=== PATIENT | male | born 1945 | race Caucasian/White ===

== ENCOUNTER → 2016-08-12 | Outpatient (CLI) | payer MEDICARE, OTHER ==
[~2016-08-12] MED LIST: ACCUPRIL40MGTAB; ASPIRIN 81M81 MG/TA2 PO; COUMADIN 1010 MG/TAB; GLUCOPHAGE XR500 M1 PO; K-DUR20 MEQ PO; NASONEX SPRAY17 GM NS; NEXIUM 40MG40 MG PO; PREDNISONE10 MG PO; TAZTIA360; ZITHROMAX 250M250 MG PO
== END ==
LOC: COL.PUL 08:33
DX: Z53.9 Procedure and treatment not carried out, unspecified reason (principal)

== ENCOUNTER 2018-05-25 09:36 | Inpatient (IN) | payer MEDICARE, OTHER ==
[~2018-05-25] VITALS: Ht 185.4 cm; Wt 141.6 kg
[2018-05-25] VITALS (126 sets, daily range): BP systolic 105–120; BP diastolic 65–66; PULSE 73–111; TEMP 97.8–98.5; O2SAT 42–99
[2018-05-25 11:03] LABS: HEMATOCRIT 41.9 % (42.0-52.0); HEMOGLOBIN 12.7 g/dl (13.5-18.0); MEAN CELL VOLUME 81 fl (80.0-100.0); MEAN CORPUSCULAR HEMOGLOBIN 25 pg (27.0-31.0); MEAN CORPUSCULAR HGB CONC 30 g/dl (33.0-37.0); MEAN PLATELET VOLUME 9.9 fl (7.4-10.4); PLATELET COUNT 279 K/mm3 (130-400); RED BLOOD COUNT 5.19 M/mm3 (4.20-5.60); REDCELL DISTRIBUTION WIDTH-CV 18.1 % (11.5-14.5)
[2018-05-25 11:15] LABS: ALBUMIN 4.2 gm/dL (3.5-5.0); BILIRUBIN,TOTAL 1.3 mg/dL (0.0-1.0); CALCIUM 9.2 mg/dL (8.4-10.2); CREATININE, serum 1.52 mg/dL (0.66-1.25); TOTAL PROTEIN 8.5 gm/dL (6.4-8.2)
[2018-05-25 11:21] LABS: COLLECTION METHOD CLEAN CATCH
[2018-05-25 11:23] LABS: POTASSIUM 4.2 mmol/L (3.4-5.0)
[2018-05-25 11:27] LABS: C-REACTIVE PROTEIN 16.5 mg/dL (0.0-0.9)
[2018-05-25 11:36] LABS: BAND 10 % (0-10); LYMPHOCYTE 21 % (20.0-51.0); NEUTROPHILS 69 % (42.0-75.2); PLATELET ESTIMATE NORMAL (NORMAL)
[2018-05-25 11:37] LABS: ANISOCYTOSIS 1+; MICROCYTOSIS 1+
[2018-05-25 11:44] LABS: MUCOUS Present /lpf; PH 5 (5-8); SQUAMOUS EPITHELIAL 0-2 /hpf; URINE APPEARANCE Hazy; URINE BACTERIA None Seen /hpf; URINE BILIRUBIN Negative (NEGATIVE); URINE BLOOD 2+ (NEGATIVE); URINE COLOR Yellow; URINE GLUCOSE Negative (NEGATIVE); URINE KETONE Negative (NEGATIVE); URINE LEUKOCYTE ESTERASE Negative (NEGATIVE); URINE NITRATE Negative (NEGATIVE); URINE PROTEIN(semi-quant) 3+ (NEGATIVE); URINE UROBILINOGEN Negative (NEGATIVE)
--- NOTE | 2018-05-25 14:30 | NUR ---
PATIENT ARRIVED TO ICU ROOM 2 VIA STRETCHER FROM ER. HE WAS ASSISTED WITH MOVING OVER TO THE BED. HE IS CURRENTLY ON 4 L NASAL CANNULA AT THIS TIME. IV ANTIBIOTICS INFUSING. VSS.
[2018-05-25 15:22] LABS: INR 2.9 (0.8-3.0); PROTHROMBIN TIME 33.1 SECONDS (9.7-12.8)
[2018-05-25] MEDS ORDERED: GLUCOPHAGE500 MG/TAB PO (15:56)
[2018-05-25] MEDS ORDERED: MAXZIDE-25MG TA1 TAB PO (15:58)
[2018-05-25] MEDS ORDERED: TRULICITY0.75 MG/0. SQ (16:00)
--- NOTE | 2018-05-25 18:26 | NUR ---
PATIENT RESTING IN BED. COMPLAINING OF SOME LOWER BACK PAIN, BUT WAS SIGNIFICANTLY REDUCED AFTER A DOSE OF DILAUDED. HAS GONE HOME BRIEFLY. HE HAS EATEN DINNER AND WAS TAKEN FRESH ICE WATER. BLADDER SCAN PREFORMED DUE TO PATIENT NOT URINATING SINCE BEING HERE. ONLY HAVE APPROXIMATELY 250 ML'S IN BLADDER. HE STATES HE IS BEGINNING TO HAVE AN URGE TO GO.
--- NOTE | 2018-05-25 19:10 | NUR ---
Report given to NGUYỄN Elizabeth.
--- NOTE | 2018-05-25 20:00 | NUR ---
Shift assessment complete at this time. Plan of care reviewed at bedside with patient. Additional time taken to address any other needs or concerns. Vitals stable at this time. Will continue to monitor.
[2018-05-26] VITALS (856 sets, daily range): BP systolic 87–119; BP diastolic 58–95; PULSE 75–107; TEMP 97.8–98.8; O2SAT 40–100
--- NOTE | 2018-05-26 | NUR ---
Shift reassessment complete at this time. No changes from previous assessment. Vitals stable at this time. Reports slight improvement on flank pain. Will continue to monitor.
--- NOTE | 2018-05-26 04:00 | NUR ---
Shift reassessment complete at this time. No changes from previous assessment. Pt reports slight decrease in R flank pain. BP soft, [facility] will notify physician who will contact with orders. Will continue to monitor.
[2018-05-26 05:07] LABS: MEAN CELL VOLUME 80 fl (80.0-100.0); MEAN CORPUSCULAR HGB CONC 31 g/dl (33.0-37.0); MEAN PLATELET VOLUME 9.9 fl (7.4-10.4); REDCELL DISTRIBUTION WIDTH-CV 18.3 % (11.5-14.5)
[2018-05-26 05:11] LABS: HEMATOCRIT 31.8 % (42.0-52.0); MEAN CORPUSCULAR HEMOGLOBIN 25 pg (27.0-31.0)
[2018-05-26 05:12] LABS: HEMOGLOBIN 9.9 g/dl (13.5-18.0); PLATELET COUNT 173 K/mm3 (130-400)
[2018-05-26 05:18] LABS: INR 2.4 (0.8-3.0); PROTHROMBIN TIME 26.9 SECONDS (9.7-12.8)
[2018-05-26 05:23] LABS: ALBUMIN 2.9 gm/dL (3.5-5.0); BILIRUBIN,TOTAL 1.8 mg/dL (0.0-1.0); CALCIUM 7.9 mg/dL (8.4-10.2); CREATININE, serum 2.1 mg/dL (0.66-1.25); POTASSIUM 3.8 mmol/L (3.4-5.0); TOTAL PROTEIN 6.2 gm/dL (6.4-8.2)
[2018-05-26 06:18] LABS: BAND 39 % (0-10); LYMPHOCYTE 3 % (20.0-51.0); NEUTROPHILS 55 % (42.0-75.2)
[2018-05-26 06:19] LABS: ANISOCYTOSIS 2+; PLATELET ESTIMATE NORMAL (NORMAL)
--- NOTE | 2018-05-26 07:15 | NUR ---
Dr. Villarreal rounds at this time. No new orders recieved.
--- NOTE | 2018-05-26 07:44 | NUR ---
Bedside report given to NGUYỄN Bueno.
--- NOTE | 2018-05-26 08:50 | NUR ---
Dr. Ortega rounds at this time. New orders as entered CPOE. POC discussed with patient to include urology consult and likely operative intervention.
--- NOTE | 2018-05-26 09:01 | NUR ---
Dr. Ortiz calls for patient update and to discuss patient POC. States he hopes to take patient to OR between 12-1 today and will be in to speak with patient shortly.
--- NOTE | 2018-05-26 09:18 | NUR ---
REJI and REJI student met with the patient to discuss discharge plan. The patient lives in [place] with his , Radha. He reports independence with ADLs and has a cane and walker. The patient's PCP is Dr. Stu Cano and he receives his medications at the [facility]. He reports no difficulties obtaining his meds. The patient does not have advanced directives in EMR, but he states that he does have them completed and that his PCP's office should have a copy. REJI then contacted Dr. Cano's office and requested a copy. The nurse reports that they do not have a copy, but would continue to search. REJI then contacted the patient's , via phone, to inquire if she has a copy at home. The patient's reports that she should have a copy and that she will bring it up to the hospital, if found. The patient's reports that the patient had designated her, his daughter, and the patient's [id number] has DPOA-HC. REJI to continue to follow.
--- NOTE | 2018-05-26 09:30 | NUR ---
Report provided to NGUYỄN Kramer. Patient without questions at this time.
--- NOTE | 2018-05-26 09:34 | NUR ---
DAYLIN at bedside for PICC placement.
--- NOTE | 2018-05-26 10:00 | NUR ---
PT PROVIDED DPOA PAPERWORK. COPY ON CHART
--- NOTE | 2018-05-26 10:07 | NUR ---
EDMUNDO YEE INSERTING PICC LINE AT THIS TIME.
--- NOTE | 2018-05-26 10:42 | NUR ---
CONSENT OBTAINED FROM PT'S .
--- NOTE | 2018-05-26 10:48 | NUR ---
The patient's brought in the patient's DPOA-HC. The copy was placed in the patients' chart. SW to continue to follow.
--- NOTE | 2018-05-26 10:51 | NUR ---
PT RESTING COMFORTABLY AT THIS TIME. AT BEDSIDE.
[2018-05-26 11:43] LABS: ARTERIAL BLD GAS O2 SATURATION 95.1 % (92-100); ARTERIAL BLD GAS TCO2 CT 19.9; ARTERIAL BLOOD GAS BASE EXCESS -6.8 (-2-2); ARTERIAL BLOOD GAS HCO3 18.8 meq/L (22-26); ARTERIAL BLOOD GAS PCO2 37.9 mmHg (35-45); ARTERIAL BLOOD GAS PO2 85.6 mmHg (80-100); ARTERIAL BLOOD GAS pH 7.31 (7.35-7.45)
--- NOTE | 2018-05-26 12:14 | NUR ---
NS BOLUS HUNG VIA STRAIGHT TUBING PER DR GAXIOLA'S VERBAL ORDER D/T INADEQUATE PO2 ON VBG. PT TAKEN TO OR BY OR NURSE. PT AWAKE, ORIENTED AND DENIES COMPLAINTS AT THIS TIME. CONSENT ON CHART.
--- NOTE | 2018-05-26 14:03 | NUR ---
PT RECEIVED FROM RICA IN OR
--- NOTE | 2018-05-26 14:05 | NUR ---
PT RETURNED FROM OR WITH CHRISTOPHER CATHETER IN PLACE. URINE HAZY WITH PINK URINE NOTED.
--- NOTE | 2018-05-26 14:05 | NUR ---
PT RETURNED FROM OR VIA BED. PT AWAKE, ALERT AND ORIENTED.
--- NOTE | 2018-05-26 18:42 | NUR ---
PT PLACED ON O2 WHILE SLEEPING PT DESATS INTO UPPER 80S WHILE SLEEPING. PT PLACED ON 3-4L NC.
--- NOTE | 2018-05-26 19:20 | NUR ---
Bedside report received from NGUYỄN Kramer.
--- NOTE | 2018-05-26 20:00 | NUR ---
Assessment complete at this time. Patient resting in bed with at the bedside. Patient requests to get up to the restroom for a BM. Assistance of 2 and gait belt needed to get up and steady when walking. Patient passed some gas, but no BM. Returned to bed with assistance of 2. Patient has some leaking around his urinary catheter. Cleaned around catheter and checked placement. Patient has some shortness of breath on exertion. Patient is back in bed resting. No further needs at this time. Will continue to monitor. Call light within reach.
[2018-05-27] VITALS (901 sets, daily range): BP systolic 90–113; BP diastolic 43–90; PULSE 88–126; TEMP 97.7–99; O2SAT 39–100
--- NOTE | 2018-05-27 | NUR ---
Assessment complete. Patient resting in bed at this time. Patient is still rating pain as a consistent 8/10, even with medications. Dilauded to be given q2hr to stay ahead of the pain. Patient is requesting more ice chips, provided. Patient has no other needs at this time. Will continue to monitor. Call light within reach.
--- NOTE | 2018-05-27 04:00 | NUR ---
Assessment complete. Patient is sleeping in bed, but awakens easily. Patient still rating pain high, 7/10, with medications. Will give dilauded as ordered. Patient has no other needs at this time. Will continue to monitor. Call light within reach.
[2018-05-27 05:33] LABS: MEAN CELL VOLUME 80 fl (80.0-100.0); MEAN CORPUSCULAR HGB CONC 30 g/dl (33.0-37.0); MEAN PLATELET VOLUME 10.9 fl (7.4-10.4); PLATELET COUNT 154 K/mm3 (130-400); RED BLOOD COUNT 4.07 M/mm3 (4.20-5.60); REDCELL DISTRIBUTION WIDTH-CV 18.8 % (11.5-14.5)
[2018-05-27 05:34] LABS: HEMATOCRIT 32.6 % (42.0-52.0); HEMOGLOBIN 9.9 g/dl (13.5-18.0); MEAN CORPUSCULAR HEMOGLOBIN 24 pg (27.0-31.0)
[2018-05-27 05:40] LABS: CALCIUM 7.3 mg/dL (8.4-10.2); CREATININE, serum 2.04 mg/dL (0.66-1.25); POTASSIUM 3.9 mmol/L (3.4-5.0)
[2018-05-27 06:19] LABS: ANISOCYTOSIS 3+; BAND 20 % (0-10); HYPOCHROMIA 3+; LYMPHOCYTE 1 % (20.0-51.0); NEUTROPHILS 71 % (42.0-75.2); OVALOCYTES 2+; PLATELET ESTIMATE NORMAL (NORMAL)
[2018-05-27 06:20] LABS: BURR CELLS 1+
--- NOTE | 2018-05-27 07:32 | NUR ---
Report received from Liana ADRIAN and care resumed.
--- NOTE | 2018-05-27 08:26 | NUR ---
Dr Ortiz called regarding decreased urine output and inability to get return after flushing. Message left.
--- NOTE | 2018-05-27 10:27 | NUR ---
Dr Ortega here to see pt. Dr Ortiz paged again as have not yet received return call and also attempted to call Dr Meier, the phone representative physician. Urologyn office contacted after no response and did pass on issues with nurse. States will speak with someone and call me back.
--- NOTE | 2018-05-27 11:40 | NUR ---
Dr Ortiz at bedside and replaced pt catheter after pt unable to void by self. Large amount of very dark almost brown colored urine noted in return. Will continue to follow.
--- NOTE | 2018-05-27 18:27 | NUR ---
Pt woke from finally resting and stated feels better. Not complaining of 8/10 pain but did state still uncomfortable with movement. Educated pt on importance of moving around for lungs, etc. Pt states he should probably go ahead and take more medication. PRN pain meds given. Will continue to follow.
--- NOTE | 2018-05-27 19:20 | NUR ---
Bedside report received from NGUYỄN Lyles.
--- NOTE | 2018-05-27 20:00 | NUR ---
Assessment complete at this time. Patient is resting in bed, but easily arousable. is at bedside. Patient states pain is a 5/10 and still in the right flank area. States that the pain isnt as bad when he doesnt move. Will give pain meds as ordered and PRN when requested. Patient has no other needs at this time. Will continue to monitor. Call light within reach.
--- NOTE | 2018-05-27 22:50 | NUR ---
Patient has complaints of nausea. States "it's every time I take those pills. They just mess with my stomach and make me nauseous." Zofran to be provided. Educated patient that sometimes it helps to have something in your stomach when he takes the pills that can help with the nausea. Patient confirms understanding and tries to drink some of his glucerna shake. Patient has emesis bag within reach as well as water, ice chip, and call light. Has no further needs at this time. Will continue to monitor.
[2018-05-28] VITALS (850 sets, daily range): BP systolic 105–121; BP diastolic 64–86; PULSE 86–109; TEMP 97.8–98.7; O2SAT 40–100
--- NOTE | 2018-05-28 | NUR ---
Assessment complete. Patient resting in bed. Nausea has subsided with no emesis. Patient states that he is feeling better at the moment. Vitals are stable. Patient has no other needs at this time. Will continue to monitor. Call light within reach.
--- NOTE | 2018-05-28 04:00 | NUR ---
Assessment complete. Patient sleeps between disturbances. Patient states that he doesn't have pain unless he moves. Vital signs stable. Patient has no other needs at this time. Will continue to monitor call light within reach.
--- NOTE | 2018-05-28 04:45 | NUR ---
Patient is now having complaints of nausea and requesting medication for it. He states "I just feel it in my stomach. I'm nauseous again". Zofran to be provided.
[2018-05-28 05:11] LABS: BASO % 0.1 % (0.0-2.0); EOS % 0.1 % (0-4.0); GRAN # 7.6 (1.4-6.5); GRAN % 80.8 % (42.2-75.2); LYMPH # 0.8 (1.2-3.4); LYMPH % 8.7 % (20.0-51.0); MEAN CELL VOLUME 81 fl (80.0-100.0); MEAN CORPUSCULAR HGB CONC 30 g/dl (33.0-37.0); MEAN PLATELET VOLUME 11.4 fl (7.4-10.4); MONO # 0.8 (0.1-0.6); PLATELET COUNT 128 K/mm3 (130-400); RED BLOOD COUNT 3.58 M/mm3 (4.20-5.60); REDCELL DISTRIBUTION WIDTH-CV 19.3 % (11.5-14.5)
[2018-05-28 05:13] LABS: HEMOGLOBIN 8.7 g/dl (13.5-18.0); MEAN CORPUSCULAR HEMOGLOBIN 24 pg (27.0-31.0)
[2018-05-28 05:24] LABS: INR 2.5 (0.8-3.0)
[2018-05-28 05:26] LABS: CALCIUM 6.4 mg/dL (8.4-10.2); CREATININE, serum 1.78 mg/dL (0.66-1.25); POTASSIUM 3.4 mmol/L (3.4-5.0)
[2018-05-28 05:27] LABS: PARTIAL THROMBOPLASTIN TIME 40.6 SECONDS (26.0-37.0)
--- NOTE | 2018-05-28 06:15 | NUR ---
Patient cries out in pain at this time while trying to move to his side in bed. Patient rates pain 8/10. Pain is sharp and in his right side flank. Patient is requesting pain meds at this time. To be provided.
--- NOTE | 2018-05-28 07:19 | NUR ---
Bedside report given to NGUYỄN Lyles
--- NOTE | 2018-05-28 09:30 | NUR ---
Dr Meier in to see pt. No new orders received. Will continue to follow.
--- NOTE | 2018-05-28 10:30 | NUR ---
Dr Stringer in to see pt at this time.
--- NOTE | 2018-05-28 11:05 | NUR ---
Pt helped up to chair with assist of 2. Was only able to stand and pivot but is doing well resting in chair at this time. Will continue to follow.
--- NOTE | 2018-05-28 17:13 | NUR ---
Pt remains resting in chair. Did eat some hamburger and shake that was brought in by family and tolerated without any nausea. remains at bedside. Pt stated he would like to go back to bed before long. PRN pain meds given in anticipation of moving. No concerns at this time, will continue to follow.
--- NOTE | 2018-05-28 18:22 | NUR ---
Report called to Ketty RN on surgical floor. Pt moved to wheelchair with assist of 2 and taken to room 346 with chart and belongings. was present. Bedside update given to Ketty and pt transfered from wheelchair to bed with assist of 2.
--- NOTE | 2018-05-28 20:00 | NUR ---
Patient sleeping at this time. Rouses fairly easily and is alert and orineted while awake, slightly hard of hearing. Hale in place, draining blood tinged urine with small clots in tubing and bag. Patient is unable to assist with repositioning and cries out in pain when he is moved. Patient declines PRN pain medicaiton, stating he is nauseous. Administered PRN nausea medicaiton and will try to administer scheduled HS meds after nausea medication has taken effect. Call light within reach.
[2018-05-29 03:24] VITALS: BP 130/68; PULSE 107; TEMP 98.2
--- NOTE | 2018-05-29 05:23 | NUR ---
Patient slept intermittently overnight. Patient continues to be unable to assist with repositioning. Patient does complain of abdominal discomfort and nausea. Abdomen appears distended and is firm to palpation. Bowel sounds are present in al four quadrants, but patient denies having a bowel movment while at the hospital. Patient denies further needs at this time, call light within reach.
[2018-05-29 06:42] LABS: MEAN CELL VOLUME 80 fl (80.0-100.0); MEAN CORPUSCULAR HGB CONC 31 g/dl (33.0-37.0); MEAN PLATELET VOLUME 11.4 fl (7.4-10.4); PLATELET COUNT 148 K/mm3 (130-400); RED BLOOD COUNT 3.88 M/mm3 (4.20-5.60); REDCELL DISTRIBUTION WIDTH-CV 19.7 % (11.5-14.5)
[2018-05-29 06:50] LABS: HEMATOCRIT 31.1 % (42.0-52.0); HEMOGLOBIN 9.5 g/dl (13.5-18.0); MEAN CORPUSCULAR HEMOGLOBIN 24 pg (27.0-31.0)
[2018-05-29 06:52] LABS: CALCIUM 7.9 mg/dL (8.4-10.2); CREATININE, serum 1.99 mg/dL (0.66-1.25)
[2018-05-29 07:13] LABS: BAND 4 % (0-10); LYMPHOCYTE 7 % (20.0-51.0); NEUTROPHILS 83 % (42.0-75.2); PLATELET ESTIMATE NORMAL (NORMAL)
[2018-05-29 07:14] VITALS: BP 122/60; PULSE 75; TEMP 97.8
[2018-05-29 07:14] LABS: BURR CELLS 2+
[2018-05-29 07:15] LABS: HYPOCHROMIA 1+; MICROCYTOSIS 1+
--- NOTE | 2018-05-29 10:31 | NUR ---
Shift assessment complete. Patient unable to move in bed. Moved up in bed with assist times 4. PA at bedside performing exam. Patient c/o pain, but very drowsy during exam. Scheduled pain medication given, will reassess. at bedside.
[2018-05-29 12:38] VITALS: BP 107/71; PULSE 115; TEMP 97.9
--- NOTE | 2018-05-29 13:04 | NUR ---
BG 176, pt not eating. 12n insulin held. Will reassess BG at dinner.
--- NOTE | 2018-05-29 16:26 | NUR ---
Patient in chair, visiting with family. Patient c/o 10 back pain. Prn flexeril given, per patient request. Will reassess pain.
[2018-05-29 16:30] VITALS: BP 128/47; PULSE 101; TEMP 97
--- NOTE | 2018-05-29 16:41 | NUR ---
Reassessed pain after flexeril and patient states, pain is better (8/10). Will continue to assess.
--- NOTE | 2018-05-29 19:30 | NUR ---
Report received from Ketty ADRIAN. Pt back to bed from chair using sit to stand. Pt reports pain of 8/10 after transfer back to bed. Requesting pain medication with night time medications. Pt given PO meds at change of shift and is requesting IV meds for breakthrough pain. Hale catheter to dependent drainage- draining rere urine. Respirations even and unlabored. Lungs clear to auscultation. Abdomen firm and rounded with hypoactive bowel sounds. 1+ pitting edema to BLE. Will continue to monitor.
[2018-05-29 19:56] VITALS: BP 137/76; PULSE 101; TEMP 98.4
[2018-05-29 23:43] VITALS: BP 129/72; PULSE 8; TEMP 97.8
[2018-05-30 03:57] VITALS: BP 145/93; PULSE 102; TEMP 97.8
[2018-05-30 05:22] LABS: INR 3.4 (0.8-3.0); PROTHROMBIN TIME 38.8 SECONDS (9.7-12.8)
[2018-05-30 05:26] LABS: CALCIUM 7.5 mg/dL (8.4-10.2); CREATININE, serum 1.6 mg/dL (0.66-1.25)
[2018-05-30 05:36] LABS: MEAN CELL VOLUME 80 fl (80.0-100.0); MEAN CORPUSCULAR HGB CONC 31 g/dl (33.0-37.0); MEAN PLATELET VOLUME 10.7 fl (7.4-10.4); PLATELET COUNT 152 K/mm3 (130-400); RED BLOOD COUNT 4.01 M/mm3 (4.20-5.60); REDCELL DISTRIBUTION WIDTH-CV 19.7 % (11.5-14.5)
[2018-05-30 05:42] LABS: HEMOGLOBIN 9.8 g/dl (13.5-18.0); MEAN CORPUSCULAR HEMOGLOBIN 24 pg (27.0-31.0)
--- NOTE | 2018-05-30 06:30 | NUR ---
Pt resting. Suppository adminsitered. Well tolerated. First dose of potassium replacement given. Pt has slept periodically throughout the night with pain while awake and moving.
--- NOTE | 2018-05-30 06:45 | NUR ---
in bed and appears to be sleeping, bedside shift report received from NGUYỄN Magallon
[2018-05-30 07:46] LABS: BAND 4 % (0-10); LYMPHOCYTE 7 % (20.0-51.0); MYELOCYTE 1 % (0-0); NEUTROPHILS 74 % (42.0-75.2); PLATELET ESTIMATE NORMAL (NORMAL)
[2018-05-30 07:47] LABS: ANISOCYTOSIS 1+
[2018-05-30 07:55] VITALS: BP 124/58; PULSE 109; TEMP 98.3
--- NOTE | 2018-05-30 08:01 | NUR ---
radiology in and xray completed, patietn scream in pain with any movement
--- NOTE | 2018-05-30 08:30 | NUR ---
cries out in pain with movement, medicated with dilaudid 1mg slow IV, physical therapy in and patient repositioned onto left side and does cy out some in pain but once on left side he states pain is better, full assessment completed, see interventions for further info
--- NOTE | 2018-05-30 08:52 | NUR ---
Dr Ortega and care team in to see patient
--- NOTE | 2018-05-30 09:00 | NUR ---
appears to be dozing, remains on left side and informed Dr that he was comfortable on his left side
--- NOTE | 2018-05-30 09:38 | NUR ---
continues to appear to be sleeping, remains on left side
--- NOTE | 2018-05-30 11:00 | NUR ---
resting on right side, at bedside
[2018-05-30 12:35] VITALS: BP 134/54; PULSE 112; TEMP 98.8
--- NOTE | 2018-05-30 13:00 | NUR ---
continues to rest on right side, visiting with a friend in waiting room
--- NOTE | 2018-05-30 13:37 | NUR ---
IV fluids stopped and patient moved to cart to go for MRI per cart
--- NOTE | 2018-05-30 14:24 | NUR ---
remains in MRI
--- NOTE | 2018-05-30 14:30 | NUR ---
returned from MRI per cart and moved over to bed, IV meds restarted, marycarmen is resting on his back and states heis comfortable at this time, son at bedside now also along with and a friend, Tammy WYMAN in and visited with them a short time and Dr Ortega will be in later, verbalizes understanding
--- NOTE | 2018-05-30 15:47 | NUR ---
appears to be sleeping, awakens easily when name is called and states he is comfortable unless he moves
[2018-05-30 16:07] VITALS: BP 136/59; PULSE 84; TEMP 98.6
--- NOTE | 2018-05-30 17:05 | NUR ---
Dr Ortega and Iveth WYMAN in to see patient and his family
--- NOTE | 2018-05-30 18:15 | NUR ---
sleeping and awakens but after his name is called numerous times and he is shaken, then opens his eyes and is able to verbalizes where he is, then goes back to sleep quickly
--- NOTE | 2018-05-30 18:44 | NUR ---
bedside shift report given to NGUYỄN Felder
--- NOTE | 2018-05-30 19:20 | NUR ---
Shift assessment complete. Pt resting in bed, sleepy but easy to wake, a&o at this time. Pt denies pain at this time. PICC noted to R upper arm, patent, IVF's infusing per orders. Alexia to ARTIS. Tele in place.
[2018-05-30 20:36] VITALS: BP 140/70; PULSE 86; TEMP 98.4
[2018-05-30 23:55] VITALS: BP 122/60; PULSE 70; TEMP 98.1
[2018-05-31 04:18] VITALS: BP 138/69; PULSE 78; TEMP 96.9
[2018-05-31 05:55] LABS: HEMOGLOBIN 10.2 g/dl (13.5-18.0); MEAN CELL VOLUME 80 fl (80.0-100.0); MEAN CORPUSCULAR HEMOGLOBIN 24 pg (27.0-31.0); MEAN CORPUSCULAR HGB CONC 30 g/dl (33.0-37.0); MEAN PLATELET VOLUME 10.6 fl (7.4-10.4); PLATELET COUNT 214 K/mm3 (130-400); RED BLOOD COUNT 4.19 M/mm3 (4.20-5.60); REDCELL DISTRIBUTION WIDTH-CV 20.2 % (11.5-14.5)
[2018-05-31 06:00] LABS: ALBUMIN 2.9 gm/dL (3.5-5.0); BILIRUBIN,TOTAL 1.4 mg/dL (0.0-1.0); CALCIUM 8.4 mg/dL (8.4-10.2); CREATININE, serum 1.71 mg/dL (0.66-1.25); POTASSIUM 4.3 mmol/L (3.4-5.0); TOTAL PROTEIN 6.5 gm/dL (6.4-8.2)
[2018-05-31 06:16] LABS: INR 3.8 (0.8-3.0); PROTHROMBIN TIME 43.1 SECONDS (9.7-12.8)
[2018-05-31 06:35] LABS: HEMATOCRIT 33.7 % (42.0-52.0)
--- NOTE | 2018-05-31 06:46 | NUR ---
Pt resting in bed s needs. Pt had uneventful night. Report given to Zhang ADRIAN to assume pt cares.
--- NOTE | 2018-05-31 07:09 | NUR ---
Report from Emerita Merida.
[2018-05-31 08:14] VITALS: BP 141/79; PULSE 76; TEMP 97.9
[2018-05-31 08:27] LABS: ANISOCYTOSIS 1+; BAND 4 % (0-10); HYPOCHROMIA 1+; LYMPHOCYTE 14 % (20.0-51.0); METAMYELOCYTE 3 % (0-0); MICROCYTOSIS 1+; NEUTROPHILS 66 % (42.0-75.2); NUCLEATED RED BLOOD CELL 1 (0-6); PLATELET ESTIMATE NORMAL (NORMAL)
[2018-05-31 10:02] LABS: MAGNESIUM 2.6 mg/dL (1.6-2.3); PHOSPHOROUS 3.3 mg/dL (2.5-4.5)
[2018-05-31 10:09] LABS: PRE ALBUMIN 8.7 mg/dL (17.6-36.0)
--- NOTE | 2018-05-31 10:15 | NUR ---
DR. GAXIOLA IN TO SEE PT THIS AM. GAVE DR GAXIOLA MESSAGE FROM [facility] FOR COPY OF MRI TO HAVE NEUROSURGEON IN [place] LOOK AT RESULTS. NEW ORDERS RECIEVED AND CARRIED OUT. PT UP TO RECLINER WITH THERAPY. PT SCREAMS OUT IN PAIN WHEN MOVING AFTER PAIN MEDS GIVEN.
--- NOTE | 2018-05-31 11:29 | NUR ---
REJI and REJI student attended clinical rounding. talked with patient about importance of getting up and moving in his recovery. SW checked PT and they are recommending home vs post acute rehab. SW will continue to follow.
[2018-05-31 12:52] VITALS: BP 134/89; PULSE 78; TEMP 97.4
[2018-05-31 16:42] VITALS: BP 150/80; PULSE 87; TEMP 98.1
[2018-05-31 20:55] VITALS: BP 140/81; PULSE 88; TEMP 99
--- NOTE | 2018-05-31 21:00 | NUR ---
Patient in bed. Has large distended abdomen with hypoactive bowel sounds, tinkling noted to upper quadrants. Patient denies passing gas. Has Oxygen on at 4L/nc, lungs are diminished bilaterally, reports shortness of breath with activity. Patient is alert oriented x2. Has pitting edema to upper and lower extremities. Is able to turn self to sides with much encouragement and moderate assistance. Hale to BSD with yellow urine. Dressing to outer left thigh intact. Skin intact to coccyx and buttocks. Has right upper arm PICC with TPN infusing without redness or swelling, good blood return on both lumens noted.
[2018-05-31 23:33] VITALS: BP 163/73; PULSE 90; TEMP 98
--- NOTE | 2018-06-01 00:41 | NUR ---
Patient yelling out loudly, repositioning himself to the left side. Reports extreme pain to back, right leg and left knee. Medicated with IV Dilaudid at this time.
--- NOTE | 2018-06-01 03:36 | NUR ---
Patient turning himself to the right, yelling out loudly and reporting pain significant to right leg and back. Medicated with IV Dilaudid 1mg at this time.
[2018-06-01 04:30] VITALS: BP 150/63; PULSE 95; TEMP 98.1
--- NOTE | 2018-06-01 05:00 | NUR ---
Lab work obtained from right upper arm PICC. Has been resting without yelling since IV Dilaudid given.
[2018-06-01 05:59] LABS: MEAN CELL VOLUME 80 fl (80.0-100.0); MEAN CORPUSCULAR HEMOGLOBIN 24 pg (27.0-31.0); MEAN CORPUSCULAR HGB CONC 31 g/dl (33.0-37.0); MEAN PLATELET VOLUME 10.1 fl (7.4-10.4); PLATELET COUNT 261 K/mm3 (130-400); RED BLOOD COUNT 4.11 M/mm3 (4.20-5.60)
[2018-06-01 06:00] LABS: HEMATOCRIT 32.8 % (42.0-52.0)
[2018-06-01 06:17] LABS: CALCIUM 8.7 mg/dL (8.4-10.2); CREATININE, serum 1.52 mg/dL (0.66-1.25); PHOSPHOROUS 2.9 mg/dL (2.5-4.5)
[2018-06-01 07:50] LABS: INR 3.2 (0.8-3.0); PROTHROMBIN TIME 36.6 SECONDS (9.7-12.8)
--- NOTE | 2018-06-01 08:00 | NUR ---
PATIENT ASSISTED TO CHAIR WITH PHYSICAL THERAPY THIS MORNING. PATEIENT IS DROWSY, BUT EASILY AROUSABLE TO NAME. PATIENT HARD OF HEARING. GENERALIZED WEAKNESS NOTED. IRREGULAR HEART RHYTHM AND TACHYCARDIA NOTED. BP ELEVATED, OTHERWISE VSS. TELE IN PLACE. DYSPNEA WITH EXERTION NOTED. ALL LUNG WILSON CLEAR UPON AUSCULTATION. PATIENT DENIES SHORTNESS OF BREATH. 02 AT 3L VIA NASAL CANNULA. BOWEL SOUNDS HYPERACTIVE ALL FOUR QUADRANTS. ABDOMEN IS DISTENDED AND FIRM TO PALPATION. PATIENT PASSING FLATUS. POSITIVE PEDAL PULSES EQUAL BILATERALLY. 3+ PITTING-EDEMA TO BLE. SCD'S TO BLE. CHRISTOPHER CATHETER TO DEPENDENT DRAINAGE WITH MODERATE AMOUNTS OF CLEAR YELLOW URINE PRESENT IN CHRISTOPHER BAG. PICC TO RUE WITH TPN INFUSING AT 67.4 MLS/HR. LIDOCAINE PATCHES APPLIED TO RIGHT LOWER BACK & HIP. CALL LIGHT WITHIN REACH. PATIENT IS NPO. PATIENT DENIES ANY OTHER NEEDS AT THIS TIME.
[2018-06-01 08:19] LABS: LYMPHOCYTE 9 % (20.0-51.0); NEUTROPHILS 75 % (42.0-75.2); PLATELET ESTIMATE NORMAL (NORMAL)
[2018-06-01 08:22] VITALS: BP 162/48; PULSE 106; TEMP 98.5
--- NOTE | 2018-06-01 08:25 | NUR ---
PATIENT CALLED OUT REQUESTING PAIN MEDICATION. PATIENT GIVEN PRN DOSE OF IV DILAUDID.
--- NOTE | 2018-06-01 08:25 | NUR ---
PATIENT REQUESTED PAIN MEDICATION. PATIENT RATING HIS PAIN A 10/10. PATIENT GIVEN PRN DOSE OF IV DILAUDID.
--- NOTE | 2018-06-01 08:30 | NUR ---
PICC intact right upper arm. With sterile technique right upper arm PICC dressing change done with insertion site cleansed with ChloraPrep 1, chlorhexidine impregnated disc applied, StatLock, skin prep, and Tegaderm applied. No signs or symptoms of IV complications noted. No concerns voiced. Arm wrapped with Yung to protect catheter.
--- NOTE | 2018-06-01 09:30 | NUR ---
PATIENT PRE-MEDICATED WITH ZOFRAN PRIOR TO TRAMADOL ADMINISTRATION PER DR. GAXIOLA.
--- NOTE | 2018-06-01 09:43 | NUR ---
PATIENT CALLED OUT REQUESTING PAIN MEDICATION. PATIENT STATES THAT THE IV MEDICATION IS NOT HELPING. PO MEDICATIONS RE-STARTED, PATIENT GIVEN PRN DOSE OF ORAL MORPHINE.
--- NOTE | 2018-06-01 11:08 | NUR ---
SW met with patient and to discuss PT recommendation for alf. Patient and his would like #1 [facility] and #2 [facility]. SW faxed referrals to both.
[2018-06-01 12:15] VITALS: BP 149/75; PULSE 95; TEMP 98.1
--- NOTE | 2018-06-01 14:30 | NUR ---
PATIENT CALLED OUT REQUESTING PAIN MEDICATION. PATIENT GIVEN PRN DOSE OF PO MORPHINE. NO OTHER NEEDS AT THIS TIME. WILL CONTINUE TO MONITOR.
[2018-06-01 16:12] VITALS: BP 140/70; PULSE 58; TEMP 97.5
[2018-06-01 19:55] VITALS: BP 139/61; PULSE 77; TEMP 98.6
--- NOTE | 2018-06-01 20:05 | NUR ---
REPORT GIVEN TO NGUYỄN CASTRO.
--- NOTE | 2018-06-01 20:30 | NUR ---
Patient in bed, at bedside. Complains of back pain 12/10. Medicated with IR MS 15mg po at this time. Patient is alert, able to have an oriented conversation with nurse at this time. Taking clear liquids without nausea or vomiting. Abdomen remains distended and firm. Noted active bowel sounds without tinkling. No flatus at this time. Has padilla to BSD with yellow urine. Right PICC with TPN infusing without redness or swelling. Has lower extremity pitting edema, moves both legs when asked. SCD's to lower legs.
--- NOTE | 2018-06-01 23:27 | NUR ---
Patient yelling out, complaining of pain to right leg and lower back. Medicated with IV Dilaudid 1mg at this time as it is too early for any oral pain medications. Rates pain 12/10.
[2018-06-02 01:29] VITALS: BP 145/75; PULSE 98; TEMP 98.6
[2018-06-02 05:12] VITALS: BP 135/73; PULSE 116; TEMP 98.6
--- NOTE | 2018-06-02 06:00 | NUR ---
Patient has rested well. Reports pain to back and rt leg 12/10. Medicated with IR MS 15mg po at this time.
[2018-06-02 06:54] LABS: HEMOGLOBIN 10.1 g/dl (13.5-18.0); MEAN CELL VOLUME 82 fl (80.0-100.0); MEAN CORPUSCULAR HEMOGLOBIN 24 pg (27.0-31.0); MEAN CORPUSCULAR HGB CONC 30 g/dl (33.0-37.0); MEAN PLATELET VOLUME 10.4 fl (7.4-10.4); PLATELET COUNT 276 K/mm3 (130-400); RED BLOOD COUNT 4.16 M/mm3 (4.20-5.60); REDCELL DISTRIBUTION WIDTH-CV 20.4 % (11.5-14.5)
[2018-06-02 06:57] LABS: INR 1.9 (0.8-3.0); PROTHROMBIN TIME 21.7 SECONDS (9.7-12.8)
[2018-06-02 06:59] LABS: ALBUMIN 2.8 gm/dL (3.5-5.0); BILIRUBIN,TOTAL 1.6 mg/dL (0.0-1.0); CALCIUM 8.9 mg/dL (8.4-10.2); CREATININE, serum 1.39 mg/dL (0.66-1.25); MAGNESIUM 1.7 mg/dL (1.6-2.3); PHOSPHOROUS 4.1 mg/dL (2.5-4.5); POTASSIUM 4.2 mmol/L (3.4-5.0); TOTAL PROTEIN 6.3 gm/dL (6.4-8.2)
[2018-06-02 07:00] LABS: HEMATOCRIT 33.9 % (42.0-52.0)
--- NOTE | 2018-06-02 08:00 | NUR ---
PATIENT IS DROWSY THIS MORNING, BUT AROUSES EASILY TO NAME. PATIENT IS HARD OF HEARING, NO HEARING AIDS. PATIENT IS A&O. IRREGULAR HEART RHYTHM WITH REGULAR RATE NOTED. VSS. TELE IN PLACE. GENERALIZED WEAKNESS NOTED. PATIENT MOVEMENT AND RANGE OF MOTION IN BED IMPROVED FROM YESTERDAY. BOWEL SOUNDS ACTIVE ALL FOUR QUADRANTS. ABDOMEN IS DISTENDED AND FIRM TO PALPATION. PATIENT STATES THAT HE'S PASSING SMALL AMOUNTS OF GAS AND IS BELCHING. PATIENT TOLERATING CLEAR LIQUIDS WITHOUT ANY COMPLAINTS OF N/V. POSITIVE PEDAL PULSES EQUAL BILATERALLY. 3+ PITTING-EDEMA TO BLE NOTED. SCD'S TO BLE. SMALL PRESSURE ULCER TO LEFT HIP COVERED WITH MEPLEX. MODERATE AMOUNT OF SHADING ON MEPLEX. LEFT HIP RE-DRESSED WITH MEPLEX. CHRISTOPHER CATHETER TO DEPENDENT DRAINAGE WITH SMALL AMOUNTS OF CLEAR ORANGE COLORED URINE PRESENT IN CHRISTOPHER BAG. PICC LINE TO RUE WITH TPN INFUSING TO PURPLE LUMEN AT 67.6 MLS/HR. BED BATH GIVEN. CATHETER CARE PROVIDED. PATIENT REPOSITIONED IN BED. CLEAR LIQUIDS TRAY ORDERED. CALL LIGHT WITHIN REACH. PATIENT DENIES ANY OTHER NEEDS AT THIS TIME.
--- NOTE | 2018-06-02 08:13 | NUR ---
PATIENT PRE-MEDICATED WITH ZOFRAN IV PRIOR TO TRAMADOL ADMINISTRATION PER DR. GAXIOLA.
[2018-06-02 08:31] VITALS: BP 137/62; PULSE 87; TEMP 97.5
[2018-06-02 08:51] LABS: BAND 5 % (0-10); EOSINOPHIL 1 % (0-4); LYMPHOCYTE 12 % (20.0-51.0); METAMYELOCYTE 1 % (0-0); NEUTROPHILS 65 % (42.0-75.2)
[2018-06-02 08:52] LABS: PLATELET ESTIMATE NORMAL (NORMAL)
--- NOTE | 2018-06-02 09:21 | NUR ---
REJI and SW student attended clinical rounds. Hanna at [facility] reports they will accept for SNF once patient't diet advances. REJI will send an update once it's completed.
--- NOTE | 2018-06-02 11:30 | NUR ---
PATIENT CALLED OUT REQUESTING PAIN MEDICATION. PATIENT GIVEN 1 TABLET OF PRN MORPHINE. WILL CONTINUE TO MONITOR.
[2018-06-02 11:32] VITALS: BP 153/84; PULSE 102; TEMP 97.8
[2018-06-02 15:56] VITALS: BP 130/87; PULSE 89; TEMP 98.4
--- NOTE | 2018-06-02 18:55 | NUR ---
PATIENT CALLED OUT REQUESTING PAIN MEDICATION. PATIENT GIVEN 1 TABLET OF PRN MORPHINE. REPORT GIVEN TO NGUYỄN CASTRO.
[2018-06-02 21:06] VITALS: BP 148/68; PULSE 80; TEMP 98.6
--- NOTE | 2018-06-02 22:30 | NUR ---
Has moderate liquid stool on bedpan. Able to roll side to side with moderate pain complaint. Is alert and oriented x2. Has right upper arm PICC with TPN infusing without problem. Lungs diminished to lower lobes. Has oxygen on at 3L/NC. Abdomen remain distended, bowel sounds active. Hale to BSD with yellow urine, catheter care provided. Takes HS meds without problem.
--- NOTE | 2018-06-02 23:20 | NUR ---
Yelling out in pain, especially when turning. Has small inc. liquid stool at this time. Medicated with IV Dilaudid 1mg now.
[2018-06-03] VITALS (7 sets, daily range): BP systolic 115–161; BP diastolic 60–89; PULSE 75–117; TEMP 97.8–98.7
--- NOTE | 2018-06-03 05:15 | NUR ---
Patient has rested well without excessive outburts of yelling. Medicated with IR Morphine 15mg po now for pain with movement 12/10. Labs drawn from right PICC. Hale with 1500cc dark yellow urine.
[2018-06-03 06:27] LABS: HEMATOCRIT 34.2 % (42.0-52.0); HEMOGLOBIN 10.2 g/dl (13.5-18.0); MEAN CELL VOLUME 81 fl (80.0-100.0); MEAN CORPUSCULAR HEMOGLOBIN 24 pg (27.0-31.0); MEAN CORPUSCULAR HGB CONC 30 g/dl (33.0-37.0); MEAN PLATELET VOLUME 10.4 fl (7.4-10.4); PLATELET COUNT 318 K/mm3 (130-400); REDCELL DISTRIBUTION WIDTH-CV 20.3 % (11.5-14.5)
[2018-06-03 06:35] LABS: CREATININE, serum 1.32 mg/dL (0.66-1.25); MAGNESIUM 1.7 mg/dL (1.6-2.3); PHOSPHOROUS 4.3 mg/dL (2.5-4.5); POTASSIUM 3.9 mmol/L (3.4-5.0)
[2018-06-03 06:58] LABS: INR 1.6 (0.8-3.0); PROTHROMBIN TIME 18.3 SECONDS (9.7-12.8)
[2018-06-03 07:15] LABS: LYMPHOCYTE 5 % (20.0-51.0); MYELOCYTE 3 % (0-0); NEUTROPHILS 87 % (42.0-75.2); PLATELET ESTIMATE NORMAL (NORMAL)
[2018-06-03 07:17] LABS: HYPOCHROMIA 1+; POLYCHROMASIA 1+
--- NOTE | 2018-06-03 08:56 | NUR ---
Patient alert and oriented, answers questions appropriately. See assessment. Lungs with occasional wheeze noted throughout all lung del cid. O2 at 2l/nc. Abdomen distended, bowel sounds absent. States feels full after one drink of water. Hale catheter patent and draining clear yellow urine, meatus noted to have small amount of swelling. No c/o at this time.
--- NOTE | 2018-06-03 10:08 | NUR ---
SW and REJI student attended clinical rounding. Patient is going back to [facility] to get some tests done. SW updated [facility] and [facility]. Will continue to follow.
[2018-06-03 13:47] LABS: COLLECTION METHOD CLEAN CATCH
[2018-06-03 13:56] LABS: MUCOUS Present /lpf; PH 5 (5-8); SQUAMOUS EPITHELIAL 0-2 /hpf; URINE APPEARANCE Hazy; URINE BACTERIA None Seen /hpf; URINE BILIRUBIN Negative (NEGATIVE); URINE BLOOD 3+ (NEGATIVE); URINE COLOR Yellow; URINE GLUCOSE 1+ (NEGATIVE); URINE KETONE Negative (NEGATIVE); URINE LEUKOCYTE ESTERASE Negative (NEGATIVE); URINE NITRATE Negative (NEGATIVE); URINE PROTEIN(semi-quant) 1+ (NEGATIVE); URINE RBC >50 /hpf; URINE UROBILINOGEN >=4.0 mg/dL (NEGATIVE)
[2018-06-04 02:58] VITALS: BP 141/77; PULSE 76; TEMP 98.2
[2018-06-04 06:49] LABS: INR 1.6 (0.8-3.0); MEAN CELL VOLUME 81 fl (80.0-100.0); MEAN CORPUSCULAR HEMOGLOBIN 24 pg (27.0-31.0); MEAN CORPUSCULAR HGB CONC 30 g/dl (33.0-37.0); MEAN PLATELET VOLUME 10.3 fl (7.4-10.4); PLATELET COUNT 336 K/mm3 (130-400); PROTHROMBIN TIME 18.5 SECONDS (9.7-12.8); RED BLOOD COUNT 4.12 M/mm3 (4.20-5.60); REDCELL DISTRIBUTION WIDTH-CV 20.1 % (11.5-14.5)
[2018-06-04 06:54] LABS: CALCIUM 8.9 mg/dL (8.4-10.2); CREATININE, serum 1.3 mg/dL (0.66-1.25); MAGNESIUM 1.9 mg/dL (1.6-2.3); PHOSPHOROUS 3.3 mg/dL (2.5-4.5); POTASSIUM 3.7 mmol/L (3.4-5.0)
[2018-06-04 07:00] LABS: HEMATOCRIT 33.5 % (42.0-52.0)
[2018-06-04 08:59] LABS: BAND 3 % (0-10); LYMPHOCYTE 15 % (20.0-51.0); METAMYELOCYTE 1 % (0-0); NEUTROPHILS 70 % (42.0-75.2)
[2018-06-04 09:01] LABS: PLATELET ESTIMATE NORMAL (NORMAL)
[2018-06-04 09:02] LABS: ANISOCYTOSIS 1+; HYPOCHROMIA 1+
[2018-06-04 09:04] VITALS: BP 158/86; PULSE 75; TEMP 98.2
--- NOTE | 2018-06-04 10:39 | NUR ---
SW educated PT of acceptance to [facility] and [facility]. Patient stated he will speak with of choice.
[2018-06-04 12:04] VITALS: BP 175/80; PULSE 102; TEMP 98
[2018-06-04 15:31] VITALS: BP 152/83; PULSE 89; TEMP 97.7
--- NOTE | 2018-06-04 18:00 | NUR ---
Complained of right hip and lower back pain with movement. Medicated for pain as needed. Physical therapy assisted patient out of bed in AM. Transferred to chair in PM with two staff assist. Passing flatus and had two loose stools this shift. Abdomen remains distended and firm. TPN infusing per PICC.
[2018-06-04 19:48] VITALS: BP 156/66; PULSE 81; TEMP 98.1
--- NOTE | 2018-06-04 20:00 | NUR ---
Patient in bed resting. Alert and oriented x3. Shift assessment complete. Hale to dependent drainage with clear rere urine present. TPN infusing to right upper arm PICC via pump. States mild pain to abdomen, will call when he feels like he needs something for the pain. Abdomen distended and firm. Bowel sounds audible, patient states he is passing gas. Patient on bedpan, had small BM. Denies further needs at this time.
[2018-06-05] VITALS (7 sets, daily range): BP systolic 127–163; BP diastolic 55–92; PULSE 69–89; TEMP 97.2–98.7
--- NOTE | 2018-06-05 06:07 | NUR ---
Patient has rested well through the night. Minimal needs. Hale maintained to dependent drainage with clear rere urine present. Denies pain at this time. Denies further needs at this time. Will report off to day shift.
[2018-06-05 07:16] LABS: MEAN CELL VOLUME 82 fl (80.0-100.0); MEAN CORPUSCULAR HGB CONC 30 g/dl (33.0-37.0); MEAN PLATELET VOLUME 10.5 fl (7.4-10.4); PLATELET COUNT 368 K/mm3 (130-400)
[2018-06-05 07:20] LABS: INR 1.7 (0.8-3.0); PROTHROMBIN TIME 18.9 SECONDS (9.7-12.8)
[2018-06-05 07:27] LABS: HEMATOCRIT 32.6 % (42.0-52.0); HEMOGLOBIN 9.7 g/dl (13.5-18.0); MEAN CORPUSCULAR HEMOGLOBIN 24 pg (27.0-31.0)
[2018-06-05 07:33] LABS: ALBUMIN 2.6 gm/dL (3.5-5.0); BILIRUBIN,TOTAL 1.1 mg/dL (0.0-1.0); CALCIUM 8.6 mg/dL (8.4-10.2); CREATININE, serum 1.27 mg/dL (0.66-1.25); MAGNESIUM 1.8 mg/dL (1.6-2.3); PHOSPHOROUS 4.2 mg/dL (2.5-4.5); POTASSIUM 3.7 mmol/L (3.4-5.0); TOTAL PROTEIN 6.2 gm/dL (6.4-8.2)
--- NOTE | 2018-06-05 08:00 | NUR ---
PATIENT RESTING IN BED THIS MORNING. PATIENT IS A&O. IRREGULAR HEART RHYTHM WITH REGULAR RATE NOTED, OTHERWISE VSS. TELE IN PLACE. GENERALIZED WEAKNESS NOTED. BOWEL SOUNDS ACTIVE ALL FOUR QUADRANTS. PATIENT TOLERATING CLEAR LIQUIDS WITHOUT ANY NAUSEA OR VOMITING. ABDOMEN DISTENDED AND FIRM TO PALPATION. PATIENT PASSING FLATUS. POSITIVE PEDAL PULSES EQUAL BILATERALLY. NON-PITTING EDEMA TO BLE. 3+ PITTING-EDEMA TO FEET AND ANKLES BILATERALLY. CHRISTOPHER CATHETER TO DEPENDENT DRAINAGE WITH MODERATE AMOUNTS OF CLEAR PALE YELLOW URINE PRESENT IN CHRISTOPHER BAG. PICC LINE TO RUE WITH TPN INFUSING AT 65.8 MLS/HR VIA IV PUMP. CALL LIGHT WITHIN REACH. LIDOCAINE PATCHES TO RIGHT HIP & BACK. NO OTHER NEEDS AT THIS TIME.
[2018-06-05 08:52] LABS: BAND 1 % (0-10); HYPOCHROMIA 1+; LYMPHOCYTE 13 % (20.0-51.0); NEUTROPHILS 80 % (42.0-75.2); PLATELET ESTIMATE NORMAL (NORMAL)
--- NOTE | 2018-06-05 09:23 | NUR ---
PATIENT CALLED OUT REQUESTING PAIN MEDICATION. PATIENT GIVEN 1 TABLET OF PRN MORPHINE FOR PAIN RATED A 8/10.
--- NOTE | 2018-06-05 11:30 | NUR ---
PATIENT CALLED OUT STATING THAT HIS PAIN IS WORSE. TOO EARLY FOR PRN MORPHINE. PATIENT GIVEN 1 TABLET OF PRN FLEXERIL. WILL CONTINUE TO MONITOR.
--- NOTE | 2018-06-05 13:22 | NUR ---
PATIENT REQUESTED PAIN MEDICATION. PATIENT DENIES RELIEF FROM PRN FLEXERIL. PATIENT GIVEN 2 TABLETS OF PRN MORPHINE. NO OTHER NEEDS AT THIS TIME.
--- NOTE | 2018-06-05 20:04 | NUR ---
PATIENT PASSING FLATUS DURING THE DAY. SUPERINTENDENT OIL FIELD DRILLING REPORTED MULTIPLE SMALL BOWEL MOVEMENTS DURING THE SHIFT. PATIENT CURRENTLY RESTING IN BED. AT THE BEDSIDE. TV ON. PATIENT REFUSED DINNER. REPORT GIVEN TO NGUYỄN CASTRO.
--- NOTE | 2018-06-05 21:00 | NUR ---
Patient reports feeling like he needs the bedpan, placed with assist of 2. Has right PICC with TPN infusing without problem. Has Oxygen on at 1L/NC. Lungs are diminished to bases. Abdomen distended, bowel sounds active. Has mild edema to penis, padilla to BSD. Catheter care provided at this time. Bilateral lower pitting edema noted. Placed SCD's on patient.
--- NOTE | 2018-06-05 22:00 | NUR ---
Patient medicated with MS IR 30mg po now for pain /, especially with activity. Reports back and right leg pain. IV Antibiotic infusing without problem to right PICC.
--- NOTE | 2018-06-05 23:30 | NUR ---
Patient in bed, has telemetry off and stating he is leaving. States "its a conspiracy and I am not going to be a part of it.". was called while this nurse was at bedside. She is coming up to see pt.
--- NOTE | 2018-06-06 00:40 | NUR ---
Medicated with IV Dilaudid 1mg now for continued back pain 12/10.
--- NOTE | 2018-06-06 01:00 | NUR ---
Spouse went home for the night.
[2018-06-06 04:15] VITALS: BP 156/83; PULSE 73; TEMP 98.6
[2018-06-06 06:26] LABS: HEMATOCRIT 34.5 % (42.0-52.0); HEMOGLOBIN 10.3 g/dl (13.5-18.0); MEAN CELL VOLUME 81 fl (80.0-100.0); MEAN CORPUSCULAR HEMOGLOBIN 24 pg (27.0-31.0); MEAN CORPUSCULAR HGB CONC 30 g/dl (33.0-37.0); MEAN PLATELET VOLUME 10.4 fl (7.4-10.4); PLATELET COUNT 412 K/mm3 (130-400); RED BLOOD COUNT 4.27 M/mm3 (4.20-5.60); REDCELL DISTRIBUTION WIDTH-CV 19.7 % (11.5-14.5)
[2018-06-06 06:30] LABS: INR 1.8 (0.8-3.0); PROTHROMBIN TIME 20.3 SECONDS (9.7-12.8)
[2018-06-06 06:51] LABS: ALBUMIN 2.9 gm/dL (3.5-5.0); BILIRUBIN,TOTAL 1.1 mg/dL (0.0-1.0); CALCIUM 8.6 mg/dL (8.4-10.2); CREATININE, serum 1.35 mg/dL (0.66-1.25); HYPOCHROMIA 1+; LYMPHOCYTE 12 % (20.0-51.0); MAGNESIUM 1.6 mg/dL (1.6-2.3); NEUTROPHILS 76 % (42.0-75.2); PHOSPHOROUS 4.5 mg/dL (2.5-4.5); PLATELET ESTIMATE INCREASED (NORMAL); POTASSIUM 3.5 mmol/L (3.4-5.0); TOTAL PROTEIN 6.7 gm/dL (6.4-8.2)
[2018-06-06 06:52] LABS: ANISOCYTOSIS 1+
[2018-06-06 07:45] VITALS: BP 149/88; PULSE 82; TEMP 98.2
--- NOTE | 2018-06-06 11:48 | NUR ---
REJI attended clinical rounding. Patient not dc today. REJI faxed updates to [facility] and [facility], both have accepted and are following.
[2018-06-06 12:16] VITALS: BP 147/79; PULSE 92; TEMP 97.8
[2018-06-06 15:53] VITALS: BP 149/72; PULSE 68; TEMP 98.1
[2018-06-06 20:30] VITALS: BP 153/88; PULSE 86; TEMP 98.4
[2018-06-07] VITALS (7 sets, daily range): BP systolic 115–145; BP diastolic 51–77; PULSE 72–90; TEMP 97.6–98.5
--- NOTE | 2018-06-07 00:28 | NUR ---
Patient had left leg hanging off bed, when asked where he was going he stated "just thinking what needs to happen next at this place". Able to convince patient to place leg back in bed. VSS. Does not ask for pain med at this time, does not appear to be in pain at this time.
[2018-06-07 05:39] LABS: BASO % 0.1 % (0.0-2.0); EOS # 0.1 (0.0-0.7); EOS % 0.7 % (0-4.0); GRAN # 4.2 (1.4-6.5); HEMATOCRIT 32.4 % (42.0-52.0); LYMPH # 1.3 (1.2-3.4); LYMPH % 19.6 % (20.0-51.0); MEAN CELL VOLUME 80 fl (80.0-100.0); MEAN CORPUSCULAR HEMOGLOBIN 25 pg (27.0-31.0); MEAN CORPUSCULAR HGB CONC 31 g/dl (33.0-37.0); MEAN PLATELET VOLUME 10.5 fl (7.4-10.4); MONO # 1.1 (0.1-0.6); MONO % 15.9 % (1.7-9.3); PLATELET COUNT 396 K/mm3 (130-400); RED BLOOD COUNT 4.06 M/mm3 (4.20-5.60); REDCELL DISTRIBUTION WIDTH-CV 19.4 % (11.5-14.5)
--- NOTE | 2018-06-07 05:40 | NUR ---
Patient alert and oriented this AM. Bowel sounds audible. Lab work obtained from right PICC. Asking for pain med for back pain 12/10. Medicated with MS IR 15mg at this time. Repositioned to right side with minimal assist.
[2018-06-07 05:51] LABS: INR 1.9 (0.8-3.0); PROTHROMBIN TIME 21.2 SECONDS (9.7-12.8)
[2018-06-07 05:58] LABS: CALCIUM 8.6 mg/dL (8.4-10.2); CREATININE, serum 1.37 mg/dL (0.66-1.25); POTASSIUM 3.4 mmol/L (3.4-5.0)
--- NOTE | 2018-06-07 09:30 | NUR ---
Patient alert and oriented, answers questions appropriately. See assessment. Abdomen soft, non distended, non tender. Bowel sounds hyperactive. +Flatus. +Bowel movement today. Hale catheter patent and draining clear rere urine. C/o pain with movement. No other c/o at this time.
--- NOTE | 2018-06-07 13:11 | NUR ---
REJI and REJI student attended clinical rounding. Patient is still having a lot of pain today. He stopped TPN yesterday afternoon and will start a full diet today. REJI faxed update to [facility] and [facility]. Will continue to follow.
--- NOTE | 2018-06-07 14:52 | NUR ---
RA SPO2 ASLEEP 75% AWAKE 85% 2 LPM NC 90%
[2018-06-08 00:25] VITALS: BP 132/87; PULSE 80; TEMP 97.7
--- NOTE | 2018-06-08 01:12 | NUR ---
THE PT WAS BEDRESTING THE SHIFT BEGAN, SLIGHTLY GRUMPY AFFECT, STATED THAT HE JUST HAD PAIN MEDS AND IT HAS BROUGHT THE PAIN DOWN FROM A 10 TO A 7. HE STATED IT IS LUMBAR SPINE DOWN RIGHT BUTTOCK AND LEG. HE HAD ORDER FOR 2 LIDODERM PATCHES, SEARCH YIELDED NONE TO REMOVE. THE PT HAD A MED INCONTINENCE ON HIS BED PAD AND A LARGE INC VOID ON THE BR FLOOR, THIS NURSE HAD PLACED HIS PENIS IN THE URINAL, BUT HE WAS NOT ATTENTIVE IN HOLDING IT WHEN THIS NURSE AND NEW SIMENTAL STEPPED OUT TO GIVE HIM PRIVACY FOR HIS TOILETING. HYGIENE ASSISTED AND BACK TO BED, POSITIONED FOR COMFORT. ACCUCHMARCOS WAS 152, HAD AN ICE CREAM FOR HS SNACK, HAD HIS HIGH NUTRITION GLUCERNA EARLIER IN THE EVENING, TOOK MIRALAX STIRRED IN AJ, 4 OZ. APPEARS TO NAP WITH TV ON.
--- NOTE | 2018-06-08 02:41 | NUR ---
BEDRESTING WITH EYES CLOSED, RESP EVEN. O2 ON VIA NC.
[2018-06-08 04:17] VITALS: BP 124/73; PULSE 85; TEMP 98.4
--- NOTE | 2018-06-08 06:26 | NUR ---
CALLED AND SPOKE TO ESME ADRIAN REGARDOMG THE PT'S ORDER FOR EPIDURAL STEROID INJECTION ON Wednesday06-09-18 AT 0730. SHE WILL PASS IT ON TO DAY SHIFT.
[2018-06-08 06:56] LABS: BASO % 0.2 % (0.0-2.0); EOS # 0.1 (0.0-0.7); GRAN # 3.5 (1.4-6.5); GRAN % 55.8 % (42.2-75.2); LYMPH # 1.7 (1.2-3.4); LYMPH % 27.7 % (20.0-51.0); MEAN CELL VOLUME 81 fl (80.0-100.0); MEAN CORPUSCULAR HGB CONC 30 g/dl (33.0-37.0); MEAN PLATELET VOLUME 10.4 fl (7.4-10.4); MONO # 0.9 (0.1-0.6); MONO % 14.8 % (1.7-9.3); PLATELET COUNT 403 K/mm3 (130-400); RED BLOOD COUNT 4.01 M/mm3 (4.20-5.60); REDCELL DISTRIBUTION WIDTH-CV 19.6 % (11.5-14.5)
[2018-06-08 06:58] LABS: HEMATOCRIT 32.6 % (42.0-52.0); HEMOGLOBIN 9.8 g/dl (13.5-18.0); MEAN CORPUSCULAR HEMOGLOBIN 24 pg (27.0-31.0)
[2018-06-08 07:14] LABS: ALBUMIN 2.8 gm/dL (3.5-5.0); CALCIUM 8.6 mg/dL (8.4-10.2); CREATININE, serum 1.63 mg/dL (0.66-1.25); MAGNESIUM 1.6 mg/dL (1.6-2.3); PHOSPHOROUS 5.6 mg/dL (2.5-4.5); POTASSIUM 3.6 mmol/L (3.4-5.0); TOTAL PROTEIN 6.8 gm/dL (6.4-8.2)
[2018-06-08 07:21] LABS: PRE ALBUMIN 13.1 mg/dL (17.6-36.0)
[2018-06-08 07:59] VITALS: BP 100/69; PULSE 82; TEMP 98.8
--- NOTE | 2018-06-08 08:00 | NUR ---
PATIENT SITTING UP IN BED THIS MORNING. PATIENT IS A&O. IRREGULAR HEART RHYTHM WITH REGULAR RATE NOTED, OTHERWISE VSS. BOWEL SOUNDS ACTIVE ALL FOUR QUADRANTS. ABDOMEN DISTENDED, BUT SOFT TO PALPATION. PATIENT TOLERATING FOOD & LIQUIDS WITHOUT ANY COMPLAINTS OF N/V. POSITIVE PEDAL PULSES EQUAL BILATERALLY. 2+ PITTING EDEMA TO RLE AND 3+ PITTING EDEMA TO LLE NOTED. SCD'S TO BLE. UPPER LUNG LOBES CLEAR UPON AUSCULTATION. LUNG BASES DIMINISHED BILATERALLY. PATIENT DENIES SHORTNESS OF BREATH OR PRODUCTIVE COUGH. 02 AT 2L VIA NASAL CANNULA. PICC TO E. BREAKFAST TRAY ORDERED. CALL LIGHT WITHIN REACH. PATIENT GIVEN 1 TABLET OF PRN MORPHINE FOR PAIN RATED A 6/10 ON A 0-10 SCALE. PATIENT DENIES ANY OTHER NEEDS AT THIS TIME.
--- NOTE | 2018-06-08 09:00 | NUR ---
PICC intact right upper arm with sterile dressing change done with insertion site cleansed with chloraprep x 1, skin prep, stat lock, chlorhexidine impregnated disk, and tegaderm applied. no signs or symptoms of IV complications noted. no concerns voiced. re-wrapped with ibis to protect catheter.
[2018-06-08 10:42] LABS: INR 2.1 (0.8-3.0); PROTHROMBIN TIME 24.3 SECONDS (9.7-12.8)
--- NOTE | 2018-06-08 11:13 | NUR ---
SW met attended clinical rounding and met with patient. They are still open to [facility] vs [facility]. SW faxed updates to both, waiting for acceptance today.
[2018-06-08 11:59] VITALS: BP 109/70; PULSE 97; TEMP 98.5
--- NOTE | 2018-06-08 12:43 | NUR ---
PATIENT REFUSED LUNCH. PATIENT GIVEN ARELY CRACKERS A SNACK WITH WITH INSULIN INJECTION.
--- NOTE | 2018-06-08 16:03 | NUR ---
ELVIN met with patient's . Patient will be able discharge tomorrow and patient still pregers to go to [facility] for skilled. Elvin will contact hakan at [facility] to set up transportation in the morning.
[2018-06-08 16:36] VITALS: BP 127/77; PULSE 80; TEMP 98.1
--- NOTE | 2018-06-08 17:17 | NUR ---
PATIENT RATING PAIN A 10/10. PATIENT GIVEN 2 TABLETS OF PRN MORPHINE. WILL CONTINUR TO MONITOR.
--- NOTE | 2018-06-08 18:00 | NUR ---
PATIENT AMBULATING TO THE BATHROOM TO VOID. PATIENT WALKING WITH PHYSICAL THERAPY. REPORT GIVEN TO NGUYỄN BARKSDALE.
[2018-06-08 20:00] VITALS: BP 141/72; PULSE 90; TEMP 98.7
--- NOTE | 2018-06-08 21:44 | NUR ---
Shift assessment complete. Patient c/o 12/10 pain in back. Prn pain medication given. Patient ambulated to BR with walker, gait belt, and assist times 1. Denies further needs. Will continue to monitor.
--- NOTE | 2018-06-09 03:41 | NUR ---
Patient ambulated to BR with walker, gait belt, and assist times 1. Patient c/o 9/10 back pain. No prn pain medications are due at this time. Patient states, he does not want me to call for additional pain medication, and will wait for his prn medication.
[2018-06-09 04:58] VITALS: BP 133/79; PULSE 84; TEMP 98.5
--- NOTE | 2018-06-09 05:31 | NUR ---
Labs drawn from PICC line, red lumen, per protocol. Both lumens flushed, and caps changed.
[2018-06-09 07:51] VITALS: BP 135/80; PULSE 68; TEMP 98.2
--- NOTE | 2018-06-09 08:00 | NUR ---
PATIENT IS SITTING UP IN BED THIS MORNING. PATIENT IS A&O. IRREGULAR HEART RHYTHM WITH REGULAR RATE NOTED, OTHERWISE VSS. TELE IN PLACE. GENERALIZED WEAKNESS NOTED. BOWEL SOUNDS ACTIVE ALL FOUR QUADRANTS. PATIENT TOLERATING FOOD & LIQUIDS WITHOUT ANY COMPLAINTS OF N/V. ABDOMEN IS DISTENDED BUT SOFT TO PALPATION. POSITIVE PEDAL PULSES EQUAL BILATERALLY. 2+ PITTING-EDEMA TO RLE AND 3+ PITTING-EDEMA TO LLE NOTED. PATIENT STATES THAT HE FEELS SHORT OF BREATH WITH ACTIVITY. O2 AT 3L VIA NASAL CANNULA. PICC LINE TO RUE. CALL LIGHT WITHIN REACH. PATIENT DENIES ANY NEEDS AT THIS TIME.
[2018-06-09 08:06] LABS: INR 2.1 (0.8-3.0); PROTHROMBIN TIME 23.7 SECONDS (9.7-12.8)
[2018-06-09] MEDS ORDERED: FLOMAX 0.40.4 MG/CAP PO (09:04)
[2018-06-09] MEDS ORDERED: FLEXERIL 1010 MG/TAB PO (09:04)
[2018-06-09] MEDS ORDERED: Lidocaine 4% Patch TP (09:05)
[2018-06-09] MEDS ORDERED: NEURONTIN300 MG/CAP PO (09:10)
[2018-06-09] MEDS ORDERED: FLONASE NASAL S16 GM NS (09:11)
[2018-06-09] MEDS ORDERED: ULTRAM 50MG TAB50 MG PO (09:12)
[2018-06-09] MEDS ORDERED: MORPHINE 1515 MG/TAB PO (09:12)
[2018-06-09] MEDS ORDERED: COUMADIN 5MG5 MG/TAB PO (10:21)
[2018-06-09] MEDS ORDERED: ACCUPRIL5MGTAB PO (10:24)
[2018-06-09] MEDS ORDERED: DULCOLAX S10 MG/SUPP RC (10:25)
[2018-06-09] MEDS ORDERED: LEADER CLE17 GM/Dose PO (10:26)
[2018-06-09] MEDS ORDERED: SENOKOT S 50 MG1 TAB PO (10:26)
--- NOTE | 2018-06-09 11:47 | NUR ---
PATIENT CALLED OUT REQUESTING PAIN MEDICATION. PATIENT RATING HIS LOW BACK AND RIGHT LEG PAIN A 9/10 ON A 0-10 SCALE. PATIENT GIVEN PRN DOSE OF PO MORPHINE. PATIENT DENIES ANY OTHER NEEDS AT THIS TIME.
[2018-06-09 11:58] VITALS: BP 133/65; PULSE 65; TEMP 97.6
--- NOTE | 2018-06-09 13:38 | NUR ---
Talked with pt's concerning discharge to [facility]. Instructed that for the retirement care and resolution for pain pt needed to see a Neurologist that they felt comfortable with and could trust. Pt is not urgent for transfer due to an acute situation-however he does need to find a Neurologist that can address pt's issues. Encouraged that if pt was discharged to [facility] Dr. Cano-pt's primary-could facilitate contact with a Neurologist in [place] or that the family would agree with. verbalized agreement with this plan and stated she felt comfortable with discharge to [facility]. Also instructed that to have pt's primary physician involved with this could help guarantee a better cohesive plan. Asked pt's if I could speak with their daughter,Cee, concerning our discussion and decision for discharge and agreed.
[2018-06-09 14:06] VITALS: BP 133/65; PULSE 65; TEMP 97.6
--- NOTE | 2018-06-09 14:54 | NUR ---
SW met with patient and patients to present IM and verbally discussed the contents. Patients signed the form. Original in chart and copy provided. Patients asked SW to call patients daughter in law as she has some concerns. SW called and left a for jayne rebolledo, . Jayne called back and voiced her concerns about patient dc when he is in acute pain. REJI explained the drs position and that he needs to see a neurologist outpatient and follow with his PCP. REJI discussed the patients ability to dispute the discharge with medicare with her as well. Jayne said she would call her mother in law and talk to her. [facility] talked with and patient and they are agreeable to go to [facility] today. Patient to be transported Via wheelchair van to [facility] today at 2:30pm. Discharge orders faxed and nurse informed.
--- NOTE | 2018-06-09 15:00 | NUR ---
PICC REMOVED BY [facility] WITH [facility]. REPORT CALLED TO BIJAN MILLER RN AT [facility]. PATIENT TAKEN TO PRIVATE TRANSPORT VEHICLE VIA WHEELCHAIR BY SURGICAL STAFF. PATIENT TRANSFERRED.
== END 2018-06-09 15:00 | DRG 854 ==
LOC: COL.ER 09:36 → ICU 12:12 → SURG 05-28 18:16
PROVIDERS: Family Medicine; Physician Assistant; Urology; ADMIT Family Medicine
PROC: 0T768DZ Dilation of Right Ureter with Intraluminal Device, Via Natural or Artificial Opening Endoscopic (ICD-10-PCS; principal; 2018-05-26 12:00)
PROC: 0TC68ZZ Extirpation of Matter from Right Ureter, Via Natural or Artificial Opening Endoscopic (ICD-10-PCS; 2018-05-26 12:00)
PROC: BT1DZZZ Fluoroscopy of Right Kidney, Ureter and Bladder (ICD-10-PCS; 2018-05-26 12:00)
DX: A41.81 Sepsis due to Enterococcus (principal); N20.1 Calculus of ureter; N17.9 Acute kidney failure, unspecified; E87.2 Acidosis; Z66 Do not resuscitate; K56.7 Ileus, unspecified; R44.3 Hallucinations, unspecified; N39.0 Urinary tract infection, site not specified; E46 Unspecified protein-calorie malnutrition; Z68.41 Body mass index [BMI] 40.0-44.9, adult; E11.65 Type 2 diabetes mellitus with hyperglycemia; I48.2 Chronic atrial fibrillation; I12.9 Hypertensive chronic kidney disease with stage 1 through stage 4 chronic kidney disease, or unspecified chronic kidney disease; E11.22 Type 2 diabetes mellitus with diabetic chronic kidney disease; T40.605A Adverse effect of unspecified narcotics, initial encounter; R65.20 Severe sepsis without septic shock; N18.9 Chronic kidney disease, unspecified; Z85.820 Personal history of malignant melanoma of skin; Z86.718 Personal history of other venous thrombosis and embolism; Z79.01 Long term (current) use of anticoagulants; I87.2 Venous insufficiency (chronic) (peripheral); E87.6 Hypokalemia; R41.0 Disorientation, unspecified; M48.061 Spinal stenosis, lumbar region without neurogenic claudication
CPT/HCPCS: 99223-AI; 99231-AI; 99232-AI; 99233-AI; 99239; A4314; A9284; A9585; C1751; C1758; C1769; C1894; C2617; C9113; J0330; J0610; J0690; J0744; J1170; J1650; J1815; J1940; J1956; J2405; J2543; J2550; J2704; J3010; J3370; J3475; J3480; J7030; J7040; J7131; Q9967

== ENCOUNTER → 2018-06-27 | Outpatient (CLI) | payer MEDICARE, OTHER ==
[~2018-06-27] MED LIST changes: +ACCUPRIL5MGTAB PO; +COUMADIN 5MG5 MG/TAB PO; +DULCOLAX S10 MG/SUPP RC; +FLEXERIL 1010 MG/TAB PO; +FLOMAX 0.40.4 MG/CAP PO; +FLONASE NASAL S16 GM NS; +GLUCOPHAGE500 MG/TAB PO; +LEADER CLE17 GM/Dose PO; +Lidocaine 4% Patch TP; +MAXZIDE-25MG TA1 TAB PO; +MORPHINE 1515 MG/TAB PO; +NEURONTIN300 MG/CAP PO; +SENOKOT S 50 MG1 TAB PO; +TRULICITY0.75 MG/0. SQ; +ULTRAM 50MG TAB50 MG PO
[2018-06-27 16:04] LABS: HEMOGLOBIN 10.5 g/dl (13.5-18.0)
[2018-06-27 16:06] LABS: HEMATOCRIT 34.8 % (42.0-52.0)
[2018-06-27 16:23] LABS: ALBUMIN 3.3 gm/dL (3.5-5.0); CALCIUM 8.4 mg/dL (8.4-10.2); CREATININE, serum 1.5 mg/dL (0.66-1.25)
== END ==
LOC: COL.LAB 04:23
PROVIDERS: Family Medicine
DX: N18.9 Chronic kidney disease, unspecified (principal); D63.1 Anemia in chronic kidney disease; K52.9 Noninfective gastroenteritis and colitis, unspecified

== ENCOUNTER 2018-07-12 05:46 | Emergency (ER) | payer MEDICARE, OTHER ==
[~2018-07-12] VITALS: Ht 185.4 cm; Wt 130.5 kg
[2018-07-12 07:11] LABS: BASO % 0.1 % (0.0-2.0); EOS % 0.2 % (0-4.0); GRAN # 9.1 (1.4-6.5); GRAN % 88.4 % (42.2-75.2); HEMATOCRIT 37.6 % (42.0-52.0); HEMOGLOBIN 11.7 g/dl (13.5-18.0); LYMPH # 0.7 (1.2-3.4); LYMPH % 6.5 % (20.0-51.0); MEAN CELL VOLUME 82 fl (80.0-100.0); MEAN CORPUSCULAR HEMOGLOBIN 26 pg (27.0-31.0); MEAN CORPUSCULAR HGB CONC 31 g/dl (33.0-37.0); MEAN PLATELET VOLUME 9.8 fl (7.4-10.4); MONO # 0.5 (0.1-0.6); MONO % 4.5 % (1.7-9.3); PLATELET COUNT 384 K/mm3 (130-400); RED BLOOD COUNT 4.58 M/mm3 (4.20-5.60); REDCELL DISTRIBUTION WIDTH-CV 18.5 % (11.5-14.5)
[2018-07-12 07:18] LABS: ALBUMIN 3.6 gm/dL (3.5-5.0); BILIRUBIN,TOTAL 0.7 mg/dL (0.0-1.0); CALCIUM 8.7 mg/dL (8.4-10.2); CREATININE, serum 1.39 mg/dL (0.66-1.25); TOTAL PROTEIN 7.7 gm/dL (6.4-8.2)
[2018-07-12 07:28] LABS: POTASSIUM 2.8 mmol/L (3.4-5.0)
[2018-07-12 08:04] LABS: PH 5 (5-8); URINE APPEARANCE Turbid; URINE BACTERIA None Seen /hpf; URINE BILIRUBIN Negative (NEGATIVE); URINE BLOOD 2+ (NEGATIVE); URINE COLOR Amber; URINE GLUCOSE Negative (NEGATIVE); URINE KETONE Negative (NEGATIVE); URINE LEUKOCYTE ESTERASE 2+ (NEGATIVE); URINE NITRATE Positive (NEGATIVE); URINE PROTEIN(semi-quant) 2+ (NEGATIVE); URINE RBC >50 /hpf; URINE UROBILINOGEN Negative (NEGATIVE)
[2018-07-12] MEDS ORDERED: LEVEMIR FLEX100 U/ML SQ (08:32)
[2018-07-12] MEDS ORDERED: LOVENOX 100100 MG/ML SQ (08:32)
[2018-07-12] MEDS ORDERED: LASIX 20MG TABL20 MG PO (08:32)
[2018-07-12] MEDS ORDERED: NOVOLOG FLEX100 U/ML SQ (08:34)
[2018-07-12] MEDS ORDERED: ACCUPRIL40MGTAB PO (08:35)
[2018-07-12] MEDS ORDERED: COUMADIN 5MG5 MG/TAB PO (08:39)
[2018-07-12] MEDS ORDERED: DYAZIDE 25 MG-31 CAP PO (08:46)
[2018-07-12 08:56] VITALS: TEMP 99.4
[2018-07-12] MEDS ORDERED: FENTANYL 50MCG TD (08:56)
[2018-07-12] MEDS ORDERED: ZOFRAN ODT4 MG PO (09:27)
[2018-07-12 09:42] VITALS: BP 139/82; PULSE 89
[2018-07-12] MEDS ORDERED: CEPHALEXIN500 M1 PO (11:01)
[2018-07-13 10:56] LABS: COLLECTION METHOD CATHETER
[2018-07-13] MEDS ORDERED: LOVENOX 3030 MG/0.3 SQ (11:06)
[2018-07-13] MEDS ORDERED: CARTIA XT180 MG PO (11:08)
[2018-07-13] MEDS ORDERED: NEXIUM 40MG40 MG PO (11:08)
[2018-07-13] MEDS ORDERED: KLOR-CON M2020 MEQ PO (11:09)
[2018-07-13] MEDS ORDERED: ASPIRIN 81M81 MG/TA2 PO (11:10)
[2018-07-13] MEDS ORDERED: COUMADIN 3MG3 MG/TAB PO (11:10)
[2018-07-13] MEDS ORDERED: LEVEMIR100 U/ML SQ (11:11)
[2018-07-13] MEDS ORDERED: NOVOLOG 100U100 U/M1 SQ (11:13)
[2018-07-13] MEDS ORDERED: LASIX 20MG TABL20 MG PO (11:14)
[2018-07-13] MEDS ORDERED: CEPHALEXIN500 M1 PO (11:24)
[2018-07-13] MEDS ORDERED: FENTANYL 50MCG TD (17:17)
[2018-07-13] MEDS ORDERED: MORPHINE 1515 MG/TAB PO (17:18)
[2018-07-17] MEDS ORDERED: LEVAQUIN 750MG750 M1 PO (13:35)
[2018-07-17] MEDS ORDERED: LOVENOX 3030 MG/0.3 SQ ×3 (13:36→13:51)
[2018-07-18] MEDS ORDERED: PROBIOTIC ACID1 EAC3 PO (14:42)
== END 2018-07-12 09:42 | disposition home or self-care (01) ==
LOC: COL.ER 05:46
PROVIDERS: Emergency Medicine
DX: K52.9 Noninfective gastroenteritis and colitis, unspecified (principal); I82.409 Acute embolism and thrombosis of unspecified deep veins of unspecified lower extremity; I10 Essential (primary) hypertension; Z90.49 Acquired absence of other specified parts of digestive tract; Z79.51 Long term (current) use of inhaled steroids; Z79.84 Long term (current) use of oral hypoglycemic drugs; Z79.82 Long term (current) use of aspirin; Z79.01 Long term (current) use of anticoagulants; Z79.4 Long term (current) use of insulin
CPT/HCPCS: J2405; J3010; J3480; J7030

== ENCOUNTER 2018-08-01 12:57 | Day surgery (SDC) | payer MEDICARE, OTHER ==
[~2018-08-01] VITALS: Ht 186.7 cm; Wt 116.8 kg
[~2018-08-01 12:57] MED LIST changes: +ACCUPRIL40MGTAB PO; +CARTIA XT180 MG PO; +CEPHALEXIN500 M1 PO; +COUMADIN 3MG3 MG/TAB PO; +DYAZIDE 25 MG-31 CAP PO; +FENTANYL 50MCG TD; +KLOR-CON M2020 MEQ PO; +LASIX 20MG TABL20 MG PO; +LEVAQUIN 750MG750 M1 PO; +LEVEMIR FLEX100 U/ML SQ; +LEVEMIR100 U/ML SQ; +LOVENOX 100100 MG/ML SQ; +LOVENOX 3030 MG/0.3 SQ; +NOVOLOG 100U100 U/M1 SQ; +NOVOLOG FLEX100 U/ML SQ; +PROBIOTIC ACID1 EAC3 PO; +ZOFRAN ODT4 MG PO
[2018-08-01 13:31] VITALS: BP 134/98; PULSE 82; TEMP 96.7
[2018-08-01] MEDS ORDERED: ACCUPRIL40MGTAB PO (13:38)
[2018-08-01] MEDS ORDERED: DYAZIDE 25 MG-31 CAP PO (13:40)
[2018-08-01] MEDS ORDERED: LOVENOX 100100 MG/ML SQ (13:43)
--- NOTE | 2018-08-01 13:47 | NUR ---
TO RM AT 1300- CALL LIGHT IN REACH AT BEDSIDE.
[2018-08-01 15:15] VITALS: BP 114/67; PULSE 64; TEMP 97.3
--- NOTE | 2018-08-01 15:15 | NUR ---
Pt returned to GI bay 2 s/p EGD/colonoscopy. Pt resting well in chair, at bedside.
[2018-08-01 15:30] VITALS: BP 125/81; PULSE 68
[2018-08-01 15:45] VITALS: BP 125/75; PULSE 56
[2018-08-01 16:00] VITALS: BP 130/75; PULSE 61
[2018-08-01 16:15] VITALS: BP 126/68; PULSE 68
--- NOTE | 2018-08-01 16:15 | NUR ---
Pt has ambulated, voided and grecia PO intake s n/v. PIV removed from R hand with catheter intact.
--- NOTE | 2018-08-01 16:33 | NUR ---
Pt discharged per w/c by nurse with .
== END 2018-08-01 16:35 | disposition home or self-care (01) ==
LOC: SDCO 12:57
DX: D12.2 Benign neoplasm of ascending colon (principal); K21.9 Gastro-esophageal reflux disease without esophagitis; I48.1 Persistent atrial fibrillation; D50.9 Iron deficiency anemia, unspecified; N39.0 Urinary tract infection, site not specified; G47.33 Obstructive sleep apnea (adult) (pediatric); I10 Essential (primary) hypertension; E66.01 Morbid (severe) obesity due to excess calories; G89.29 Other chronic pain; Z85.820 Personal history of malignant melanoma of skin; Z79.01 Long term (current) use of anticoagulants; Z79.4 Long term (current) use of insulin; Z79.82 Long term (current) use of aspirin; Z86.718 Personal history of other venous thrombosis and embolism
CPT/HCPCS: OP; J2704; J3010; J7030

== ENCOUNTER 2018-12-12 10:00 | Outpatient (RCR) | payer MEDICARE, OTHER | END 2018-12-27 | disposition still patient (30) | LOC: MKS.ESL.PT | DX: M48.062 Spinal stenosis, lumbar region with neurogenic claudication (principal) ==

== ENCOUNTER → 2019-08-31 | Outpatient (CLI) | payer MEDICARE, OTHER ==
[~2019-08-31] MED LIST changes: +COUMADIN 1010 MG/TAB PO; +CUBICIN 500MG500 MG IV; +DEMADEX 20MG20 M1 PO; +DEMADEX10 MG PO; +FERRO-TIME325 MG PO; +MAXIPIME1 GM IV; +MAXZIDE 50 MG-71 TAB PO; +ZESTRIL 10MG10 MG PO; +ZESTRIL 20MG TA20 MG PO
== END ==
LOC: ZCOL.LAB 17:40
DX: E11.9 Type 2 diabetes mellitus without complications (principal); L84 Corns and callosities; M86.9 Osteomyelitis, unspecified

== ENCOUNTER 2019-09-06 08:00 | Outpatient (RCR) | payer MEDICARE, OTHER ==
[2019-07-26 09:06] VITALS: BP 133/52; PULSE 64; TEMP 97.8
[2019-07-26 17:55] VITALS: BP 137/66; PULSE 66; TEMP 98
[2019-07-27 07:30] VITALS: BP 133/82; PULSE 72; TEMP 98.3
[2019-07-27 17:58] VITALS: BP 125/74; PULSE 79; TEMP 98.5
[2019-07-28 07:28] VITALS: BP 134/66; PULSE 57; TEMP 98.5
--- NOTE | 2019-07-28 17:35 | NUR ---
Per pt Dr Torres returned his call in regards to his coumadin.per pt he took it last night and will take it tonight as directed by Dr Torres and then he will hold it Wednesday and Wednesday night.
[2019-07-28 17:45] VITALS: BP 144/76; PULSE 80; TEMP 97.8
[2019-07-29 07:58] VITALS: BP 130/76; PULSE 71; TEMP 98.2
[2019-07-29 17:35] VITALS: BP 150/58; PULSE 86; TEMP 97.5
[2019-07-30 07:54] VITALS: BP 142/67; PULSE 61; TEMP 97.5
[2019-07-30 17:37] VITALS: BP 120/97; PULSE 83; TEMP 97.7
[2019-07-31 07:18] VITALS: BP 133/63; PULSE 66; TEMP 97.8
[2019-07-31 09:10] LABS: BASO % 0.1 % (0.0-2.0); EOS # 0.1 (0.0-0.7); GRAN # 4.6 (1.4-6.5); GRAN % 58.6 % (42.2-75.2); LYMPH # 2.5 (1.2-3.4); LYMPH % 31.4 % (20.0-51.0); MEAN CELL VOLUME 76 fl (80.0-100.0); MEAN CORPUSCULAR HGB CONC 29 g/dl (33.0-37.0); MEAN PLATELET VOLUME 9.4 fl (7.4-10.4); MONO # 0.7 (0.1-0.6); MONO % 8.4 % (1.7-9.3); PLATELET COUNT 450 K/mm3 (130-400); RED BLOOD COUNT 4.37 M/mm3 (4.20-5.60); REDCELL DISTRIBUTION WIDTH-CV 19.5 % (11.5-14.5)
[2019-07-31 09:12] LABS: HEMATOCRIT 33.1 % (42.0-52.0); HEMOGLOBIN 9.5 g/dl (13.5-18.0); MEAN CORPUSCULAR HEMOGLOBIN 22 pg (27.0-31.0)
[2019-07-31 09:15] LABS: INR 1.4 (0.8-3.0); PROTHROMBIN TIME 16.3 SECONDS (9.7-12.8)
[2019-07-31 09:24] LABS: ALBUMIN 3.9 gm/dL (3.5-5.0); BILIRUBIN,TOTAL 0.4 mg/dL (0.0-1.0); C-REACTIVE PROTEIN 0.6 mg/dL (0.0-0.9); CALCIUM 9.1 mg/dL (8.4-10.2); CREATININE, serum 1.87 (0.66-1.25); POTASSIUM 4.5 mmol/L (3.4-5.0); TOTAL PROTEIN 7.6 gm/dL (6.4-8.2)
[2019-07-31 09:39] LABS: ERYTHROCYTE SEDIMENTATION RATE 27 mm/hr (0-30)
[2019-07-31 17:37] VITALS: BP 151/71; PULSE 68; TEMP 97.5
[2019-08-01 07:11] VITALS: BP 143/73; PULSE 61; TEMP 97.9
[2019-08-01 18:10] VITALS: BP 140/73; PULSE 63; TEMP 98.5
[2019-08-02 07:35] VITALS: BP 131/57; PULSE 67; TEMP 98.3
[2019-08-02 17:44] VITALS: BP 139/72; PULSE 67; TEMP 98.1
[2019-08-03 07:11] VITALS: BP 132/70; PULSE 74; TEMP 98.5
[2019-08-03 17:43] VITALS: BP 136/66; PULSE 70; TEMP 98.2
[2019-08-04 07:23] VITALS: BP 126/69; PULSE 58; TEMP 97.9
[2019-08-04 17:38] VITALS: BP 149/74; PULSE 59; TEMP 98.2
[2019-08-05 08:21] VITALS: BP 140/70; PULSE 94; TEMP 97.9
[2019-08-05 17:39] VITALS: BP 152/76; PULSE 75; TEMP 97.4
[2019-08-06 07:41] VITALS: BP 129/80; PULSE 70; TEMP 97.6
[2019-08-06 17:49] VITALS: BP 161/62; PULSE 98; TEMP 97.5
[2019-08-07 07:36] VITALS: BP 141/64; PULSE 78; TEMP 98.1
[2019-08-07 07:49] LABS: BASO % 0.4 % (0.0-2.0); EOS # 0.1 (0.0-0.7); EOS % 1.8 % (0-4.0); GRAN % 59.7 % (42.2-75.2); LYMPH # 1.9 (1.2-3.4); LYMPH % 28.7 % (20.0-51.0); MEAN CELL VOLUME 75 fl (80.0-100.0); MEAN CORPUSCULAR HGB CONC 29 g/dl (33.0-37.0); MEAN PLATELET VOLUME 9.4 fl (7.4-10.4); MONO # 0.6 (0.1-0.6); MONO % 9.1 % (1.7-9.3); PLATELET COUNT 374 K/mm3 (130-400); RED BLOOD COUNT 4.49 M/mm3 (4.20-5.60); REDCELL DISTRIBUTION WIDTH-CV 19.7 % (11.5-14.5)
[2019-08-07 07:50] LABS: HEMATOCRIT 33.5 % (42.0-52.0); HEMOGLOBIN 9.8 g/dl (13.5-18.0); MEAN CORPUSCULAR HEMOGLOBIN 22 pg (27.0-31.0)
[2019-08-07 08:00] LABS: INR 1.5 (0.8-3.0); PROTHROMBIN TIME 17.6 SECONDS (9.7-12.8)
[2019-08-07 08:03] LABS: ALANINE AMINOTRANSFERASE 20 U/L (4-49); ALBUMIN 3.9 gm/dL (3.5-5.0); ALKALINE PHOSPHATASE 66 U/L (50-136); ANION GAP 9 mmol/L (7-16); AST,SGOT 29 U/L (15-37); BILIRUBIN,TOTAL 0.4 mg/dL (0.0-1.0); BLOOD UREA NITROGEN 39 mg/dL (9-20); CALCIUM 8.9 mg/dL (8.4-10.2); CARBON DIOXIDE 21 mmol/L (22-30); CHLORIDE 111 mmol/L (98-107); CREATINE KINASE 189 U/L (55-170); CREATININE, serum 1.67 (0.66-1.25); GLUCOSE 168 mg/dL (74-106); POTASSIUM 4.3 mmol/L (3.4-5.0); SODIUM 141 mmol/L (137-145); TOTAL PROTEIN 7.5 gm/dL (6.4-8.2)
[2019-08-07 08:09] LABS: C-REACTIVE PROTEIN < 0.5 mg/dL (0.0-0.9)
[2019-08-07 08:21] LABS: ERYTHROCYTE SEDIMENTATION RATE 16 mm/hr (0-30)
[2019-08-07 17:40] VITALS: BP 140/65; PULSE 66; TEMP 97.7
[2019-08-08 07:19] VITALS: BP 149/72; PULSE 70; TEMP 98.2
[2019-08-08 17:45] VITALS: BP 136/68; PULSE 66; TEMP 98
[2019-08-09 07:35] VITALS: BP 134/80; PULSE 62; TEMP 97.3
[2019-08-09 17:50] VITALS: BP 121/63; PULSE 62; TEMP 97.6
[2019-08-10 07:23] VITALS: BP 137/63; PULSE 57; TEMP 97.6
[2019-08-10 17:58] VITALS: BP 114/72; PULSE 77; TEMP 97.8
[2019-08-11 08:09] VITALS: BP 128/66; PULSE 75; TEMP 98
[2019-08-11 17:30] VITALS: BP 132/71; PULSE 68; TEMP 97.8
[2019-08-12 07:45] VITALS: BP 132/83; PULSE 54; TEMP 97.5
[2019-08-12 17:48] VITALS: BP 124/73; PULSE 73; TEMP 97.7
[2019-08-13 07:40] VITALS: BP 140/73; PULSE 67; TEMP 97.7
[2019-08-13 17:47] VITALS: BP 149/69; PULSE 65; TEMP 97.7
[2019-08-14 07:27] VITALS: BP 130/60; PULSE 53; TEMP 97.5
[2019-08-14 07:37] LABS: BASO % 0.3 % (0.0-2.0); EOS # 0.2 (0.0-0.7); EOS % 2.2 % (0-4.0); GRAN # 3.8 (1.4-6.5); GRAN % 53.6 % (42.2-75.2); LYMPH # 2.4 (1.2-3.4); LYMPH % 32.9 % (20.0-51.0); MEAN CELL VOLUME 75 fl (80.0-100.0); MEAN CORPUSCULAR HGB CONC 29 g/dl (33.0-37.0); MEAN PLATELET VOLUME 9.8 fl (7.4-10.4); MONO # 0.8 (0.1-0.6); MONO % 10.6 % (1.7-9.3); PLATELET COUNT 294 K/mm3 (130-400); RED BLOOD COUNT 4.46 M/mm3 (4.20-5.60); REDCELL DISTRIBUTION WIDTH-CV 20.8 % (11.5-14.5)
[2019-08-14 07:42] LABS: INR 2.6 (0.8-3.0); PROTHROMBIN TIME 31.1 SECONDS (9.7-12.8)
[2019-08-14 07:49] LABS: ALANINE AMINOTRANSFERASE 16 U/L (4-49); ALBUMIN 3.9 gm/dL (3.5-5.0); ALKALINE PHOSPHATASE 66 U/L (50-136); ANION GAP 7 mmol/L (7-16); AST,SGOT 24 U/L (15-37); BILIRUBIN,TOTAL 0.3 mg/dL (0.0-1.0); BLOOD UREA NITROGEN 40 mg/dL (9-20); CALCIUM 8.8 mg/dL (8.4-10.2); CARBON DIOXIDE 24 mmol/L (22-30); CHLORIDE 110 mmol/L (98-107); CREATINE KINASE 111 U/L (55-170); CREATININE, serum 1.71 (0.66-1.25); GLUCOSE 130 mg/dL (74-106); POTASSIUM 4.4 mmol/L (3.4-5.0); SODIUM 141 mmol/L (137-145); TOTAL PROTEIN 7.6 gm/dL (6.4-8.2)
[2019-08-14 07:57] LABS: HEMATOCRIT 33.3 % (42.0-52.0); HEMOGLOBIN 9.8 g/dl (13.5-18.0); MEAN CORPUSCULAR HEMOGLOBIN 22 pg (27.0-31.0)
[2019-08-14 08:00] LABS: C-REACTIVE PROTEIN < 0.5 mg/dL (0.0-0.9)
[2019-08-14 08:18] LABS: ERYTHROCYTE SEDIMENTATION RATE 22 mm/hr (0-30)
[2019-08-14 17:36] VITALS: BP 131/74; PULSE 60; TEMP 97.7
[2019-08-15 08:04] VITALS: BP 136/83; PULSE 51; TEMP 97.7
[2019-08-15 17:49] VITALS: BP 146/69; PULSE 93; TEMP 97.8
[2019-08-16 07:24] VITALS: BP 140/67; PULSE 62; TEMP 98.1
[2019-08-16 18:03] VITALS: BP 150/67; PULSE 62; TEMP 98.3
[2019-08-17 07:16] VITALS: BP 165/82; PULSE 62; TEMP 97.4
[2019-08-17 17:37] VITALS: BP 140/53; PULSE 69; TEMP 97.5
[2019-08-18 07:40] VITALS: BP 135/76; PULSE 57; TEMP 97.6
--- NOTE | 2019-08-18 08:00 | NUR ---
here for cares. With sterile technique right upper arm PICC dressing change done with insertion site cleansed with ChloraPrep 1, chlorhexidine impregnated disc applied, skin prep, StatLock, and Tegaderm applied. Small amount of yellow clear drainage noted at site. No further drainage wants dressing change done. No other signs or symptoms of IV complications noted. No concerns voiced. Arm wrapped with Yung to protect catheter. We'll continue to monitor.
[2019-08-18 17:46] VITALS: BP 150/69; PULSE 56; TEMP 97.9
[2019-08-19 07:48] VITALS: BP 127/68; PULSE 64; TEMP 98.1
[2019-08-19 17:37] VITALS: BP 165/71; PULSE 59; TEMP 98.4
[2019-08-20 07:51] VITALS: BP 154/65; PULSE 60; TEMP 97.5
[2019-08-20 17:47] VITALS: BP 145/70; PULSE 62; TEMP 97.9
[2019-08-21 07:07] VITALS: BP 133/63; PULSE 65; TEMP 96
[2019-08-21 07:44] LABS: BASO % 0.2 % (0.0-2.0); EOS # 0.4 (0.0-0.7); EOS % 6.7 % (0-4.0); GRAN # 3.5 (1.4-6.5); GRAN % 52.8 % (42.2-75.2); HEMATOCRIT 31.8 % (42.0-52.0); HEMOGLOBIN 9.5 g/dl (13.5-18.0); LYMPH # 1.9 (1.2-3.4); LYMPH % 29.1 % (20.0-51.0); MEAN CELL VOLUME 74 fl (80.0-100.0); MEAN CORPUSCULAR HEMOGLOBIN 22 pg (27.0-31.0); MEAN CORPUSCULAR HGB CONC 30 g/dl (33.0-37.0); MEAN PLATELET VOLUME 9.8 fl (7.4-10.4); MONO # 0.7 (0.1-0.6); MONO % 10.7 % (1.7-9.3); PLATELET COUNT 297 K/mm3 (130-400); RED BLOOD COUNT 4.29 M/mm3 (4.20-5.60); REDCELL DISTRIBUTION WIDTH-CV 21.3 % (11.5-14.5)
[2019-08-21 07:56] LABS: ALANINE AMINOTRANSFERASE 15 U/L (4-49); ALBUMIN 3.7 gm/dL (3.5-5.0); ALKALINE PHOSPHATASE 63 U/L (50-136); ANION GAP 7 mmol/L (7-16); AST,SGOT 22 U/L (15-37); BILIRUBIN,TOTAL 0.3 mg/dL (0.0-1.0); BLOOD UREA NITROGEN 41 mg/dL (9-20); C-REACTIVE PROTEIN < 0.5 mg/dL (0.0-0.9); CALCIUM 8.7 mg/dL (8.4-10.2); CARBON DIOXIDE 23 mmol/L (22-30); CHLORIDE 111 mmol/L (98-107); CREATINE KINASE 85 U/L (55-170); CREATININE, serum 1.54 (0.66-1.25); GLUCOSE 116 mg/dL (74-106); POTASSIUM 4.2 mmol/L (3.4-5.0); SODIUM 140 mmol/L (137-145); TOTAL PROTEIN 7.3 gm/dL (6.4-8.2)
[2019-08-21 08:14] LABS: ERYTHROCYTE SEDIMENTATION RATE 19 mm/hr (0-30)
[2019-08-21 15:09] VITALS: BP 128/68; PULSE 69; TEMP 97.9
[2019-08-22 10:42] VITALS: BP 133/84; PULSE 61; TEMP 97.8
[2019-08-23 09:13] VITALS: BP 133/56; PULSE 76; TEMP 97.4
[2019-08-24 08:18] VITALS: BP 139/56; PULSE 59; TEMP 97.2
[2019-08-25 08:14] VITALS: BP 136/68; PULSE 74; TEMP 97.8
--- NOTE | 2019-08-25 08:15 | NUR ---
PICC intact right upper arm with sterile dressing change done with insertion site cleansed with chloraprep x 1, chlorhexidine impregnated disk applied, skin prep, stat lock, and tegaderm applied. no signs or symptoms of IV complications noted. no concerns voiced. re-wrapped with ibis to protect catheter.
[2019-08-26 08:38] VITALS: BP 138/65; PULSE 63; TEMP 97.8
[2019-08-27 09:11] VITALS: BP 144/65; PULSE 55; TEMP 97.9
[2019-08-28 08:21] VITALS: BP 154/64; PULSE 68; TEMP 97.7
[2019-08-28 08:41] LABS: INR 2.7 (0.8-3.0); PROTHROMBIN TIME 32.2 SECONDS (9.7-12.8)
[2019-08-28 08:42] LABS: BASO % 0.3 % (0.0-2.0); EOS # 0.3 (0.0-0.7); EOS % 3.6 % (0-4.0); GRAN # 3.9 (1.4-6.5); GRAN % 53.9 % (42.2-75.2); LYMPH # 2.4 (1.2-3.4); LYMPH % 32.6 % (20.0-51.0); MEAN CELL VOLUME 74 fl (80.0-100.0); MEAN CORPUSCULAR HGB CONC 30 g/dl (33.0-37.0); MEAN PLATELET VOLUME 9.6 fl (7.4-10.4); MONO # 0.7 (0.1-0.6); MONO % 9.2 % (1.7-9.3); PLATELET COUNT 359 K/mm3 (130-400); RED BLOOD COUNT 4.49 M/mm3 (4.20-5.60); REDCELL DISTRIBUTION WIDTH-CV 21.5 % (11.5-14.5)
[2019-08-28 08:45] LABS: HEMATOCRIT 33.1 % (42.0-52.0); HEMOGLOBIN 9.8 g/dl (13.5-18.0); MEAN CORPUSCULAR HEMOGLOBIN 22 pg (27.0-31.0)
[2019-08-28 08:51] LABS: ALBUMIN 3.9 gm/dL (3.5-5.0); BILIRUBIN,TOTAL 0.4 mg/dL (0.0-1.0); C-REACTIVE PROTEIN 0.6 mg/dL (0.0-0.9); CALCIUM 8.8 mg/dL (8.4-10.2); CREATININE, serum 1.6 (0.66-1.25); POTASSIUM 4.1 mmol/L (3.4-5.0); TOTAL PROTEIN 7.4 gm/dL (6.4-8.2)
[2019-08-28 09:20] LABS: ERYTHROCYTE SEDIMENTATION RATE 21 mm/hr (0-30)
[2019-08-29 08:03] VITALS: BP 144/74; PULSE 83; TEMP 97.9
[2019-08-30 08:52] VITALS: BP 145/57; PULSE 65; TEMP 97.7
[2019-08-31 08:08] VITALS: BP 148/79; PULSE 59; TEMP 97.7
[2019-09-01 08:48] VITALS: BP 138/89; PULSE 65; TEMP 98.2
[2019-09-02 09:24] VITALS: BP 135/63; PULSE 70; TEMP 97.8
[2019-09-03 08:05] VITALS: BP 132/72; PULSE 72; TEMP 98.1
[2019-09-04 08:10] VITALS: BP 160/67; PULSE 85; TEMP 98
[2019-09-04 08:45] LABS: BASO % 0.2 % (0.0-2.0); EOS # 0.2 (0.0-0.7); GRAN # 3.7 (1.4-6.5); GRAN % 55.4 % (42.2-75.2); LYMPH % 30.3 % (20.0-51.0); MEAN CELL VOLUME 75 fl (80.0-100.0); MEAN CORPUSCULAR HGB CONC 30 g/dl (33.0-37.0); MEAN PLATELET VOLUME 9.9 fl (7.4-10.4); MONO # 0.7 (0.1-0.6); MONO % 10.6 % (1.7-9.3); PLATELET COUNT 329 K/mm3 (130-400); RED BLOOD COUNT 4.23 M/mm3 (4.20-5.60); REDCELL DISTRIBUTION WIDTH-CV 21.5 % (11.5-14.5)
[2019-09-04 08:49] LABS: INR 2.7 (0.8-3.0); PROTHROMBIN TIME 32.6 SECONDS (9.7-12.8)
[2019-09-04 08:57] LABS: ALBUMIN 3.8 gm/dL (3.5-5.0); BILIRUBIN,TOTAL 0.4 mg/dL (0.0-1.0); C-REACTIVE PROTEIN 0.6 mg/dL (0.0-0.9); CALCIUM 8.4 mg/dL (8.4-10.2); CREATININE, serum 1.56 (0.66-1.25); TOTAL PROTEIN 7.3 gm/dL (6.4-8.2)
[2019-09-04 09:08] LABS: ERYTHROCYTE SEDIMENTATION RATE 20 mm/hr (0-30)
[2019-09-04 09:09] LABS: HEMATOCRIT 31.8 % (42.0-52.0); HEMOGLOBIN 9.5 g/dl (13.5-18.0); MEAN CORPUSCULAR HEMOGLOBIN 22 pg (27.0-31.0)
[2019-09-05 08:12] VITALS: BP 136/74; PULSE 68; TEMP 98.3
[~2019-09-06] VITALS: Ht 188 cm; Wt 129.3 kg
[2019-09-06 08:14] VITALS: BP 156/87; PULSE 67; TEMP 98.5
--- NOTE | 2019-09-06 09:22 | NUR ---
Pt escorted out via wheelchair by this nurse.
== END 2019-09-06 09:22 | disposition home or self-care (01) ==
LOC: EUO 08:00
PROVIDERS: Family Medicine; Internal Medicine Infectious Disease; Nurse Practitioner
DX: Z45.2 Encounter for adjustment and management of vascular access device (principal); M86.642 Other chronic osteomyelitis, left hand; Z79.2 Long term (current) use of antibiotics
CPT/HCPCS: C1751; J0692; J0878

== ENCOUNTER 2020-04-29 16:00 | Outpatient (RCR) | payer MEDICARE, OTHER ==
[2020-04-19 16:23] VITALS: BP 126/57; PULSE 70; TEMP 98.6
[2020-04-22 15:43] VITALS: BP 121/76; PULSE 71; TEMP 98.4
[2020-04-25 15:38] VITALS: BP 149/77; PULSE 81; TEMP 98.3
[~2020-04-29] VITALS: Ht 188 cm; Wt 130.8 kg
[2020-04-29 16:23] VITALS: BP 142/80; PULSE 65; TEMP 98.3
== END 2020-05-06 ==
LOC: EUO
DX: D50.9 Iron deficiency anemia, unspecified (principal)
CPT/HCPCS: J2916

== ENCOUNTER → 2020-07-08 | Outpatient (CLI) | payer MEDICARE, OTHER | LOC: ZCOL.LAB 16:54 | DX: L97.509 Non-pressure chronic ulcer of other part of unspecified foot with unspecified severity (principal) ==

== ENCOUNTER → 2020-08-07 | Outpatient (CLI) | payer MEDICARE, OTHER | LOC: ZCOL.LAB 16:24 | DX: E13.621 Other specified diabetes mellitus with foot ulcer (principal); L97.509 Non-pressure chronic ulcer of other part of unspecified foot with unspecified severity ==

== ENCOUNTER → 2020-09-27 | Outpatient (CLI) | payer MEDICARE, OTHER | LOC: ZCOL.LAB 16:12 | DX: M86.9 Osteomyelitis, unspecified (principal) ==

== ENCOUNTER → 2020-10-18 | Outpatient (CLI) | payer MEDICARE, OTHER | LOC: ZCOL.LAB 12:32 | DX: L97.509 Non-pressure chronic ulcer of other part of unspecified foot with unspecified severity (principal) ==

== ENCOUNTER → 2020-10-28 | Outpatient (CLI) | payer MEDICARE, OTHER | LOC: COL.RAD 12:18 | DX: M89.542 Osteolysis, left hand (principal); M86.171 Other acute osteomyelitis, right ankle and foot ==

== ENCOUNTER → 2020-10-28 | Outpatient (CLI) | payer MEDICARE, OTHER | LOC: ZCOL.LAB 16:21 | DX: B99.9 Unspecified infectious disease (principal) ==

== ENCOUNTER → 2021-03-13 | Outpatient (CLI) | payer MEDICARE, OTHER | LOC: ZCOL.LAB 16:10 | DX: E11.621 Type 2 diabetes mellitus with foot ulcer (principal) ==

== ENCOUNTER → 2021-07-16 | Outpatient (CLI) | payer MEDICARE, OTHER | LOC: COL.PUL 07:29 | DX: R05.3 Chronic cough (principal) ==